=== PATIENT | male | born 1975 | race Caucasian/White ===

== ENCOUNTER 2016-08-10 08:28 | Inpatient (IN) | payer OTHER ==
[~2016-08-10] VITALS: Ht 170.2 cm; Wt 99.3 kg
--- NOTE | 2016-08-10 09:06 | PHYS DOC ---
Adult General Chief Complaint Chief Complaint: ABDOMINAL PAIN HPI HPI Patient is a 40 year old male who presents with normal pain. He states all the symptoms started last night when he started feeling abdominal cramps exhibited feels better when he lays down but the cramps last for several minutes and coming ago. He states he's been having urinary frequency with mild pain on urination. He denies any blood in his stools are diarrhea or constipation. He has had nausea but no vomiting and feels feverish. He denies any abdominal surgeries. States nothing makes the pain better or worse. He does have a history of hypertension. Review of Systems Review of Systems Constitutional: Denies fever or chills [] Eyes: Denies change in visual acuity, redness, or eye pain [] HENT: Denies nasal congestion or sore throat [] Respiratory: Denies cough or shortness of breath [] Cardiovascular: No additional information not addressed in HPI [] GI: Positive for abdominal pain, nausea, Denies vomiting, bloody stools or diarrhea [] : Denies dysuria or hematuria [] Musculoskeletal: Denies back pain or joint pain [] Integument: Denies rash or skin lesions [] Neurologic: Denies headache, focal weakness or sensory changes [] Endocrine: Denies polyuria or polydipsia [] Current Medications Current Medications Current Medications Medications (Trade) Dose Ordered Sig/Aruna Start Time Stop Time Status Last Admin Dose Admin Info (Do NOT chart on this entry -- for MONITORING) 1 each PRN DAILY PRN 08/10/16 09:30 08/12/16 09:29 Iohexol (Omnipaque 300 Mg/ml) 75 ml 1X ONCE 08/10/16 09:30 08/10/16 09:31 DC 08/10/16 09:30 75 ML Morphine Sulfate 4 mg PRN Q15MIN PRN 08/10/16 09:15 08/11/16 09:14 08/10/16 09:14 4 MG Ondansetron HCl (Zofran) 4 mg 1X ONCE 08/10/16 09:15 08/10/16 09:16 DC 08/10/16 09:14 4 MG Sodium Chloride 1,000 ml @ 1,000 mls/hr Q1H 08/10/16 09:15 08/10/16 10:14 DC 08/10/16 09:13 1,000 MLS/HR Allergies Allergies Allergies Coded Allergies Type Severity Reaction Last Updated Verified bee venom protein (honey bee) Allergy Severe Anaphylaxis 08/10/16 Yes Physical Exam Physical Exam Constitutional: Well developed, well nourished, no acute distress, non-toxic appearance. [] HENT: Normocephalic, atraumatic, bilateral external ears normal, oropharynx moist, no oral exudates, nose normal. [] Eyes: PERRLA, EOMI, conjunctiva normal, no discharge. [] Neck: Normal range of motion, no tenderness, supple, no stridor. [] Cardiovascular:Heart rate regular rhythm, no murmur [] Lungs & Thorax: Bilateral breath sounds clear to auscultation [] Abdomen: Bowel sounds hypoactive, distended, tender to palpation with voluntary guarding of the bilateral lower quadrants, no rebound, no masses, no pulsatile masses. [] Skin: Warm, dry, no erythema, no rash. [] Back: No tenderness, no CVA tenderness. [] Extremities: No tenderness, no cyanosis, no clubbing, ROM intact, no edema. [] Neurologic: Alert and oriented X 3, normal motor function, normal sensory function, no focal deficits noted. [] Psychologic: Affect normal, judgement normal, mood normal. [] Current Patient Data Vital Signs Vital Signs Date Time Temp Pulse Resp B/P (MAP) Pulse Ox O2 Delivery O2 Flow Rate FiO2 08/10/16 09:14 17 97 Room Air 08/10/16 08:53 98.7 89 117/67 (84) 98.7 Lab Values Laboratory Tests Test 08/10/16 09:05 White Blood Count 18.2 x10^3/uL (4.0-11.0) H Red Blood Count 4.92 x10^6/uL (4.30-5.70) Hemoglobin 14.1 g/dL (13.0-17.5) Hematocrit 42.7 % (39.0-53.0) Mean Corpuscular Volume 87 fL (79-100) Mean Corpuscular Hemoglobin 29 pg (25-35) Mean Corpuscular Hemoglobin Concent 33 g/dL (31-37) Red Cell Distribution Width 14.9 % (11.5-14.5) H Platelet Count 211 x10^3/uL (140-400) Neutrophils (%) (Auto) 81 % (31-73) H Lymphocytes (%) (Auto) 14 % (24-48) L Monocytes (%) (Auto) 5 % (0-9) Eosinophils (%) (Auto) 0 % (0-3) Basophils (%) (Auto) 0 % (0-3) Neutrophils # (Auto) 14.8 x10^3uL (1.8-7.7) H Lymphocytes # (Auto) 2.5 x10^3/uL (1.0-4.8) Monocytes # (Auto) 0.9 x10^3/uL (0.0-1.1) Eosinophils # (Auto) 0.0 x10^3/uL (0.0-0.7) Basophils # (Auto) 0.0 x10^3/uL (0.0-0.2) Platelet Estimate Pending Prothrombin Time 14.1 SEC (11.7-14.0) H Prothrombin Time INR 1.2 (0.8-1.1) H PTT 26 SEC (24-38) Sodium Level 137 mmol/L (136-145) Potassium Level 4.2 mmol/L (3.5-5.1) Chloride Level 101 mmol/L (98-107) Carbon Dioxide Level 27 mmol/L (21-32) Anion Gap 9 (6-14) Blood Urea Nitrogen 14 mg/dL (8-26) Creatinine 1.3 mg/dL (0.7-1.3) Estimated GFR (Cockcroft-Gault) 60.5 Glucose Level 208 mg/dL (70-99) H Calcium Level 9.6 mg/dL (8.5-10.1) Total Bilirubin 1.6 mg/dL (0.2-1.0) H Direct Bilirubin 0.4 mg/dL (0.0-0.2) H Aspartate Amino Transferase (AST) 18 U/L (15-37) Alanine Aminotransferase (ALT) 33 U/L (16-63) Alkaline Phosphatase 79 U/L (46-116) Creatine Kinase 105 U/L (39-308) Creatine Kinase MB (Mass) 0.8 ng/mL (0.0-3.6) Creatine Kinase MB Relative Index 0.8 % (0-4) Troponin I Quantitative < 0.017 ng/mL (0.000-0.055) Total Protein 8.0 g/dL (6.4-8.2) Albumin 4.0 g/dL (3.4-5.0) Lipase 104 U/L (73-393) Laboratory Tests 08/10/16 09:05 Laboratory Tests 08/10/16 09:05 EKG EKG EKG shows sinus tachycardia [address] elevations, T-wave inversions noted in leads 1, 2, aVL, V5 V6, normal axis, QTC 4 and 39 ms, as interpreted by me. Radiology/Procedures Radiology/Procedures [facility] [address] [place] [address] IMAGING REPORT Signed PATIENT: ROMERO MEZA ACCOUNT: [id number] : 1975 LOCATION: ER AGE: 40 SEX: M EXAM STATUS: REG ER ORD. PHYSICIAN: WARNER BACA MD REASON: abd pain PROCEDURE: CT ABD PELV W/ IV CONTRST ONLY CT study of the abdomen and pelvis with contrast History: Abdominal pain. Technique: After IV infusion of 75 cc of 300, helical CT scanning of the abdomen and pelvis was performed. No GI contrast was administered. This may decrease the sensitivity to detect GI tract pathology. PQRS Compliance Statement: One or more of the following individualized dose reduction techniques were utilized for this examination: 1. Automated exposure control 2. Adjustment of the mA and/or kV according to patient size 3. Use of iterative reconstruction technique Comparison study: None available. Findings: The liver and spleen and pancreas and gallbladder are unremarkable. No extrahepatic biliary ductal dilatation is seen. No adrenal mass is evident. 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 No hydronephrosis or renal mass is seen on either side. Urinary bladder wall is smooth. No focal aneurysmal dilatation of the abdominal aorta is seen. No enlarged abdominal or pelvic lymphadenopathy is seen. Sigmoid diverticulosis is seen. There is segmental wall thickening with moderate pericolonic inflammatory change involving the proximal sigmoid colon consistent with diverticulitis. No free fluid or abscess or free intraperitoneal air is seen. The appendix is normal. The terminal ileum is unremarkable. No obstructive bowel pattern is seen. Dependent atelectasis of both lung bases is seen. No osteolytic process is seen. IMPRESSION: Proximal sigmoid diverticulitis. No abscess or free air or bowel obstruction or free fluid is seen. Note-colonic malignancy could have the same appearance. Therefore, recommend colonoscopy after completion of antibiotic therapy if this has not been performed recently. DICTATED and SIGNED BY: BROOKE TARIQ MD DATE: 08/10/16 1055 CC: WARNER BACA MD; NO PCP ~ Impressions: Diverticulitis Course & Med Decision Making Course & Med Decision Making Pertinent Labs and Imaging studies reviewed. (See chart for details) CT abdomen pelvis shows diverticulitis. Also elevated white blood cell count. He 's been started on Cipro and Flagyl IV. He is being admitted to Dr. mclaughlin in stable condition this time. Dr. mclaughlin has been updated on his physical exam. Dragon Disclaimer Dragon Disclaimer This electronic medical record was generated, in whole or in part, using a voice recognition dictation system. Departure Departure Impression: Primary Impression: Diverticulitis Disposition: ADMITTED INPATIENT Admitting Physician: Annamarie Mclaughlin Condition: STABLE Problem Qualifiers Primary Impression: Diverticulitis Diverticulitis site: unspecified part of intestinal tract Diverticulitis complication: unspecified complication status WARNER BACA MD Aug 10, 2016 09:06
[2016-08-10] MEDS: MORPHINE SULFATE 4 MG/ML DISP.SYRIN. IV/SQ PRN ×2 (09:14→11:57)
[2016-08-10] MEDS ORDERED: IV NORMAL SALINE 1000ML BAG 1,000 ML IV SCH (09:15)
[2016-08-10] MEDS ORDERED: ONDANSETRON PF 4 MG/2 ML VIAL. IV ONE (09:15)
[2016-08-10 09:21] LABS: BASO % 0 % (0-3); EOS % 0 % (0-3); HEMATOCRIT 42.7 % (39.0-53.0); HEMOGLOBIN 14.1 g/dL (13.0-17.5); LYMPH # 2.5 x10^3/uL (1.0-4.8); LYMPH % 14 % (24-48); MEAN CORPUSCULAR HEMOGLOBIN 29 pg (25-35); MEAN CORPUSCULAR HGB CONC 33 g/dL (31-37); MEAN CORPUSCULAR VOLUME 87 fL (79-100); MONO % 5 % (0-9); NEUT % 81 % (31-73); PLATELET COUNT 211 x10^3/uL (140-400); RED BLOOD COUNT 4.92 x10^6/uL (4.30-5.70); RED CELL DISTRIBUTION WIDTH 14.9 % (11.5-14.5); WHITE BLOOD COUNT 18.2 x10^3/uL (4.0-11.0)
[2016-08-10] MEDS ORDERED: IOHEXOL 300 MG/ML 75 ML VIAL IV ONE (09:30)
[2016-08-10] MEDS ORDERED: CONTRAST GIVEN MC PRN (09:30)
[2016-08-10 09:31] LABS: INR 1.2 (0.8-1.1); PROTHROMBIN TIME PATIENT 14.1 SEC (11.7-14.0)
[2016-08-10 09:41] LABS: CALCIUM 9.6 mg/dL (8.5-10.1); CREATININE 1.3 mg/dL (0.7-1.3); DIRECT BILIRUBIN 0.4 mg/dL (0.0-0.2); GFR 60.5; POTASSIUM 4.2 mmol/L (3.5-5.1); TOTAL BILIRUBIN 1.6 mg/dL (0.2-1.0)
[2016-08-10 09:46] LABS: CKMB MASS 0.8 ng/mL (0.0-3.6)
--- NOTE | 2016-08-10 10:46 | EKG ---
[facility] [address] [place] [address] Test Date: 2016-08-10 Test Time: 09:50:02 Pat Name: ROMERO MEZA Department: Room: Gender: M [employer]: : 1975 Requested By: WARNER BACA Order Number: [id number] Reading MD: Jessica Torres Measurements Intervals [place] Rate: 103 P: 47 WI: 122 QRS: 24 QRSD: 82 T: 178 QT: 334 QTc: 439 Interpretive Statements SINUS TACHYCARDIA COMPLEX(ES) WITH ABERRANT INTRAVENTRICULAR CONDUCTION LEFT ATRIAL ABNORMALITY T ABNORMALITY IN ANTERIOR LEADS LATERAL LEADS INFERIOR LEADS Electronically Signed On 08-13-2016 13:41:05 CDT by Jessica Torres
--- NOTE | 2016-08-10 11:04 | RAD ---
CT study of the abdomen and pelvis with contrast History: Abdominal pain. Technique: After IV infusion of 75 cc of 300, helical CT scanning of the abdomen and pelvis was performed. No GI contrast was administered. This may decrease the sensitivity to detect GI tract pathology. PQRS Compliance Statement: One or more of the following individualized dose reduction techniques were utilized for this examination: 1. Automated exposure control 2. Adjustment of the mA and/or kV according to patient size 3. Use of iterative reconstruction technique Comparison study: None available. Findings: The liver and spleen and pancreas and gallbladder are unremarkable. No extrahepatic biliary ductal dilatation is seen. No adrenal mass is evident. 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 No hydronephrosis or renal mass is seen on either side. Urinary bladder wall is smooth. No focal aneurysmal dilatation of the abdominal aorta is seen. No enlarged abdominal or pelvic lymphadenopathy is seen. Sigmoid diverticulosis is seen. There is segmental wall thickening with moderate pericolonic inflammatory change involving the proximal sigmoid colon consistent with diverticulitis. No free fluid or abscess or free intraperitoneal air is seen. The appendix is normal. The terminal ileum is unremarkable. No obstructive bowel pattern is seen. Dependent atelectasis of both lung bases is seen. No osteolytic process is seen. IMPRESSION: Proximal sigmoid diverticulitis. No abscess or free air or bowel obstruction or free fluid is seen. Note-colonic malignancy could have the same appearance. Therefore, recommend colonoscopy after completion of antibiotic therapy if this has not been performed recently.
[2016-08-10 11:40] LABS: BILIRUBIN,URINE NEGATIVE (NEG); GLUCOSE,URINE NEGATIVE (NEG); NITRITE,URINE NEGATIVE (NEG); PH,URINE 5.5; PROTEIN,URINE 30 mg/dL (NEG-TRACE); UROBILINOGEN,URINE 0.2 mg/dL (0.2 mg/dL)
[2016-08-10 11:44] LABS: BARBITURATES NEG (NEG); BENZODIAZEPINES NEG (NEG); CANNABINOIDS NEG (NEG); COCAINE NEG (NEG); METHADONE NEG (NEG); OPIATES POS (NEG); PHENCYCLIDINE NEG (NEG)
[2016-08-10] MEDS ORDERED: IV NORMAL SALINE 1000ML BAG 1,000 ML IV ONE ×2 (11:45→12:45)
[2016-08-10] MEDS ORDERED: ONDANSETRON PF 4 MG/2 ML VIAL. IV PRN (11:45)
[2016-08-10] MEDS ORDERED: IV DEXTROSE 5 %-0.45 % NACL 1,000 ML IV ONE (11:45)
[2016-08-10 11:58] LABS: BACTERIA,URINE 0 /HPF (0-FEW); RBC,URINE 0 /HPF (0-2); SQUAMOUS EPITHELIAL CELL,UR OCC /LPF; WBC,URINE 0 /HPF (0-4)
[2016-08-10] MEDS ORDERED: CIPROFLOXACIN 400MG PREMIX 200 ML IV ONE (12:00)
--- NOTE | 2016-08-10 12:01 | ACF ---
Admit Criteria Forms Admit Criteria Forms Admit Criteria Forms ABDOMINAL PAIN Clinical Indications for Admission to Inpatient Care (Place 'X' for any and all applicable criteria): Admission is indicated for ANY ONE of the following(1)(2)(3)(4)(5): [X]I. Inpatient admission required rather than observation care (Also use Abdominal Pain: Observation Care, as appropriate) because of ANY ONE of the following: [ ]a) Severe pain requiring acute inpatient management [X]b) Identification of etiology/finding that requires inpatient care (eg, aortic dissection, free air) [ ]c) Absent bowel sounds with complete ileus(6) [ ]d) Suspected toxic megacolon [ ]e) Severe electrolyte abnormalities requiring inpatient care [ ]f) High fever or infection requiring inpatient admission as indicated by ANY ONE of following(7)(8): [ ] i) Appropriate outpatient or observational care antimicrobial treatment unavailable, not effective, or not feasible [ ] ii) Documented bacteremia [ ] iii) Temperature > 104.9 degrees F (oral) [ ] iv) T >103.1 F (oral) or < 96.8 F(rectal) that does not respond to all emergency treatment measures [ ]g) Signs of intestinal obstruction [B] [ ]h) Hemodynamic instability [ ]i) IV fluid to replace significant ongoing losses (greater than 3 L/m2 per day) (12)(13) [ ]j) Percutaneous or open drainage (eg, abscess, biliary tract ) procedures [ ]k) Parenteral nutrition regimen that must be implemented on inpatient basis [ ]l) Other condition,treatment or monitoring requiring inpatient admission. [ ]II. Peritoneal signs present [ ]III. Surgery needed that cannot be performed on an ambulatory basis. [ ]IV. Evaluation requires patient to not eat or drink for extended period ( eg, more than 24 hours). [ ]V. Contraindications and/or Inappropriate clinical situations for Observational Care in patients with abdominal pain, when ANY ONE of the following is required: [ ]a) Thorough evaluation is required to prevent catastrophic events due to delays in diagnosing (e.g.Mesenteric ischemia) 1,3 [ ]b) Patient with severe pathology or with chronic symptoms unlikely to improve in the ED stay (3) [ ]. General contraindications and/or Inappropriate clinical situations for Observational Care in patients with abdominal pain, when ANY ONE of the following is required: [ ]a) Prediction of prolongation of LOS based on ANY ONE of the following may be considered as a contraindication for observational care 2, 3, 4, 5, 6, 7, 8, 9, 10, 11 [ ]i) Age > 65 yrs. [ ]ii) Patient arriving by ambulance [ ]iii) Patient with high acuity [ ]iv) Patient requiring vital sign monitoring [ ]v) Patient on IV medication [ ]b) Systolic blood pressures 180mmHg 3,12 [ ]c) Patient with altered mental status including delirium and other alteration of consciousness, (3) [ ]d) Patient whose discharge disposition will be to a usp home or rehabilitation home should not be managed in Emergency Department Observation Unit. CMS rule requires 3 days hospital stay before such placement.3,13 [ ]e) Patient with failure to thrive due to broad array of etiologies 3,16,17 [ ]f) Inability to ambulate 3,14 Extended stay beyond goal length of stay may be needed for(2)(3): [ ]a) Persistent abdominal pain with suspected intra-abdominal process [ ]b) Diagnosed condition requiring continued stay (e.g., pancreatitis, complicated diverticulitis) [ ]c) Surgery (e.g., colectomy) The original [employer] content created by [employer] has been revised. The portions of the content which have been revised are identified through the use of italic text or in bold, and [facility] has neither reviewed nor approved the modified material.All other unmodified content is copyright [employer]. Please see references footnoted in the original [employer] edition 2016 HERLINDA TORRE Aug 10, 2016 12:01
[2016-08-10] MEDS ORDERED: DEXTROSE 50% 25 GM / 50ML DISP.SYRIN. IV PRN (12:45)
[2016-08-10 12:50] VITALS: BP 132/80
[2016-08-10 13:00] VITALS: BP 143/68
[2016-08-10] MEDS ORDERED: NICOTINE POLACRILEX 2MG GUM PACKAGE of 12. BC PRN (13:00)
[2016-08-10] MEDS ORDERED: NICOTINE 14MG PATCH. TD PRN (13:00)
[2016-08-10 13:02] LABS: PLT ESTIMATE ADEQUATE (ADEQUATE)
--- NOTE | 2016-08-10 13:03 | PDOC1 ---
History and Physical Date of Admission Date of Admission DATE: 08/10/16 TIME: 12:57 Identification/Chief Complaint Chief Complaint abdominal pain Problems: Source Source: Chart review, Patient History of Present Illness History of Present Illness Mr. Hua, is a 40 year old male admit with sudden onset of severe abd pain. Pain 0300 last night, acute pain, but tried to keep working, brought to ER by a coworker. Crampy pain, 7/10, worse with standing or walking, min. improvement with IV morphine. no fever or chills, urine has been darker, and some pain when urinting, but may be abdominal pain. 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 Family History: Hypertension Social History Smoke: 1 pack per day ALCOHOL: none Drugs: None Current Problem List Problem List Problems Medical Problems: (1) Diverticulitis Status: Acute Problems: Current Medications Current Medications Current Medications Morphine Sulfate 4 mg PRN Q15MIN PRN IV/SQ PAIN GREATER THAN 3/10 Last administered on 08/10/16 11:57; Start 08/10/16 at 09:15; Stop 08/11/16 at 09:14 Sodium Chloride 1,000 ml @ 1,000 mls/hr Q1H IV Last administered on 08/10/16 09:13; Start 08/10/16 at 09:15; Stop 08/10/16 at 10:14; Status DC Ondansetron HCl (Zofran) 4 mg 1X ONCE IV Last administered on 08/10/16 09:14 ; Start 08/10/16 at 09:15; Stop 08/10/16 at 09:16; Status DC Iohexol (Omnipaque 300 Mg/ml) 75 ml 1X ONCE IV Last administered on 08/10/16 09:30; Start 08/10/16 at 09:30; Stop 08/10/16 at 09:31; Status DC Info (Do NOT chart on this entry -- for MONITORING) 1 each PRN DAILY PRN MC SEE COMMENTS; Start 08/10/16 at 09:30; Stop 08/12/16 at 09:29 Ciprofloxacin Lactate 200 ml @ 200 mls/hr Q12HR IV ; Start 08/10/16 at 21:00 Metronidazole 100 ml @ 100 mls/hr Q8HRS IV ; Start 08/10/16 at 22:00 Ciprofloxacin Lactate 200 ml @ 200 mls/hr 1X ONCE IV Last administered on t 12:00; Start 08/10/16 at 12:00; Stop 08/10/16 at 12:59 Metronidazole 100 ml @ 100 mls/hr 1X ONCE IV ; Start 08/10/16 at 12:00; Stop 08/10/16 at 12:59 Ondansetron HCl (Zofran) 4 mg PRN Q8HRS PRN IV NAUSEA/VOMITING; Start 08/10/16 at 11:45; Stop 08/11/16 at 11:44 Morphine Sulfate 4 mg PRN Q2HR PRN IV PAIN; Start 08/10/16 at 11:45; Stop 08/12 at 23:59 Dextrose/Sodium Chloride 1,000 ml @ 125 mls/hr 1X ONCE IV ; Start 08/10/16 at 11:45; Stop 08/10/16 at 19:44 Sodium Chloride 1,000 ml @ 1,000 mls/hr 1X ONCE IV ; Start 08/10/16 at 11:45; Stop 08/10/16 at 12:44; Status DC Potassium Chloride/Dextrose/ Sod Cl 1,000 ml @ 125 mls/hr Q8H IV ; Start at 12:45 Insulin Aspart (NovoLOG) 0-7 UNITS TIDWMEALS SQ ; Start 08/10/16 at 17:00 Dextrose (Dextrose 50%-Water Syringe) 12.5 gm PRN Q15MIN PRN IV SEE COMMENTS; Start 08/10/16 at 12:45 Sodium Chloride 1,000 ml @ 1,000 mls/hr 1X ONCE IV ; Start 08/10/16 at 12:45; Stop 08/10/16 at 13:44 Allergies Allergies: Coded Allergies: bee venom protein (honey bee) (Verified Allergy, Severe, Anaphylaxis, 08/10) ROS General: YES: Appetite, No: Chills, Night Sweats, Fatigue, Malaise, Other PSYCHOLOGICAL ROS: No: Anxiety, Behavioral Disorder, Concentration difficultie , Decreased libido, Depression, Disorientation, Hallucinations, Hostility, Irritablity, Memory difficulties, Mood Swings, Obsessive thoughts, Physical abuse, Sexual abuse, Sleep disturbances, Suicidal ideation, Other Eyes: No Blurry vision, No Decreased vision, No Double vision, No Dry eyes, No Excessive tearing, No Eye Pain, No Itchy Eyes, No Loss of vision, No Photophobia , No Scotomata, No Uses contacts, No Uses glasses, No Other HEENT: No: Heacaches, Visual Changes, Hearing change, Nasal congestion, Nasal discharge, Oral lesions, Sinus pain, Sore Throat, Epistaxis, Sneezing, Snoring, Tinnitus, Vertigo, Vocal changes, Other Respiratory: No: Cough, Hemoptysis, Orthopnea, Pleuritic Pain, Shortness of breath, SOB with excertion, Sputum Changes, Stridor, Tachypnea, Wheezing, Other Cardiovascular: No Chest Pain, No Palpitations, No Orthopnea, No Paroxysmal Noc. Dyspnea, No Edema, No Lt Headedness, No Other Gastrointestinal: Yes Abdominal Pain, No Nausea, No Vomiting, No Diarrhea, No Constipation, No Melena, No Hematochezia, No Other Genitourinary: No Dysuria, No Frequency, No Incontinence, No Hematuria, No Retention, No Discharge, No Urgency, No Pain, No Flank Pain, No Other, No , No , No , No , No , No , No Musculoskeletal: Yes Joint Stiffness, No Gait Disturbance, No Joint Pain, No Joint Swelling, No Muscle Pain, No Muscular Weakness, No Pain In:, No Swelling In:, No Other Neurological: No Behavorial Changes, No Bowel/Bladder ControlChng, No Confusion , No Dizziness, No Gait Disturbance, No Headaches, No Impaired Coord/balance, No Memory Loss, No Numbness/Tingling, No Seizures, No Speech Problems, No Tremors, No Visual Changes, No Weakness, No Other Skin: No Dry Skin, No Eczema, No Hair Changes, No Lumps, No Mole Changes, No Mottling, No Nail Changes, No Pruritus, No Rash, No Skin Lesion Changes, No Other, No Acne Physical Exam General: Alert, mild distress HEENT: Atraumatic, PERRLA, EOMI, Mucous membr. moist/pink Lungs: Clear to auscultation, Normal air movement Heart: RRR, no gallops, no murmurs Abdomen: Soft (tender), Other (guarding, sounds hypoactive, no rebound or peritoneal sign) Extremities: No clubbing, No edema, Normal pulses Skin: No rashes, No significant lesion Neuro: Normal speech, Normal tone, Sensation intact, Cranial nerves 3-12 NL Psych/Mental Status: Mental status NL, Mood NL Vitals Vitals Vital Signs Date Time Temp Pulse Resp B/P (MAP) Pulse Ox O2 Delivery O2 Flow Rate FiO2 08/10/16 12:20 101 21 132/80 (97) 92 Room Air 08/10/16 08:53 98.7 98.7 Labs Labs Laboratory Tests Test 08/10/16 09:05 08/10/16 11:20 White Blood Count 18.2 x10^3/uL (4.0-11.0) Red Blood Count 4.92 x10^6/uL (4.30-5.70) Hemoglobin 14.1 g/dL (13.0-17.5) Hematocrit 42.7 % (39.0-53.0) Mean Corpuscular Volume 87 fL (79-100) Mean Corpuscular Hemoglobin 29 pg (25-35) Mean Corpuscular Hemoglobin Concent 33 g/dL (31-37) Red Cell Distribution Width 14.9 % (11.5-14.5) Platelet Count 211 x10^3/uL (140-400) Neutrophils (%) (Auto) 81 % (31-73) Lymphocytes (%) (Auto) 14 % (24-48) Monocytes (%) (Auto) 5 % (0-9) Eosinophils (%) (Auto) 0 % (0-3) Basophils (%) (Auto) 0 % (0-3) Neutrophils # (Auto) 14.8 x10^3uL (1.8-7.7) Lymphocytes # (Auto) 2.5 x10^3/uL (1.0-4.8) Monocytes # (Auto) 0.9 x10^3/uL (0.0-1.1) Eosinophils # (Auto) 0.0 x10^3/uL (0.0-0.7) Basophils # (Auto) 0.0 x10^3/uL (0.0-0.2) Prothrombin Time 14.1 SEC (11.7-14.0) Prothromb Time International Ratio 1.2 (0.8-1.1) Activated Partial Thromboplast Time 26 SEC (24-38) Sodium Level 137 mmol/L (136-145) Potassium Level 4.2 mmol/L (3.5-5.1) Chloride Level 101 mmol/L (98-107) Carbon Dioxide Level 27 mmol/L (21-32) Anion Gap 9 (6-14) Blood Urea Nitrogen 14 mg/dL (8-26) Creatinine 1.3 mg/dL (0.7-1.3) Estimated GFR (Cockcroft-Gault) 60.5 Glucose Level 208 mg/dL (70-99) Calcium Level 9.6 mg/dL (8.5-10.1) Total Bilirubin 1.6 mg/dL (0.2-1.0) Direct Bilirubin 0.4 mg/dL (0.0-0.2) Aspartate Amino Transf (AST/SGOT) 18 U/L (15-37) Alanine Aminotransferase (ALT/SGPT) 33 U/L (16-63) Alkaline Phosphatase 79 U/L (46-116) Creatine Kinase 105 U/L (39-308) Creatine Kinase MB (Mass) 0.8 ng/mL (0.0-3.6) Creatine Kinase MB Relative Index 0.8 % (0-4) Troponin I Quantitative < 0.017 ng/mL (0.000-0.055) Total Protein 8.0 g/dL (6.4-8.2) Albumin 4.0 g/dL (3.4-5.0) Lipase 104 U/L (73-393) Urine Collection Type Unknown Urine Color Yellow Urine Clarity Clear Urine pH 5.5 Urine Specific [place] 1.020 Urine Protein 30 mg/dL (NEG-TRACE) Urine Glucose (UA) Negative mg/dL (NEG) Urine Ketones (Stick) Negative mg/dL (NEG) Urine Blood Negative (NEG) Urine Nitrite Negative (NEG) Urine Bilirubin Negative (NEG) Urine Urobilinogen Dipstick 0.2 mg/dL (0.2 mg/dL) Urine Leukocyte Esterase Negative (NEG) Urine RBC 0 /HPF (0-2) Urine WBC 0 /HPF (0-4) Urine Squamous Epithelial Cells Occ /LPF Urine Bacteria 0 /HPF (0-FEW) Urine Hyaline Casts Many /HPF Urine Mucus Marked /LPF Urine Opiates Screen Pos (NEG) Urine Methadone Screen Neg (NEG) Urine Barbiturates Neg (NEG) Urine Phencyclidine Screen Neg (NEG) Urine Amphetamine/Methamphetamine Neg (NEG) Urine Benzodiazepines Screen Neg (NEG) Urine Cocaine Screen Neg (NEG) Urine Cannabinoids Screen Neg (NEG) Urine Ethyl Alcohol Neg (NEG) Laboratory Tests Test 08/10/16 09:05 08/10/16 11:20 White Blood Count 18.2 x10^3/uL (4.0-11.0) Red Blood Count 4.92 x10^6/uL (4.30-5.70) Hemoglobin 14.1 g/dL (13.0-17.5) Hematocrit 42.7 % (39.0-53.0) Mean Corpuscular Volume 87 fL (79-100) Mean Corpuscular Hemoglobin 29 pg (25-35) Mean Corpuscular Hemoglobin Concent 33 g/dL (31-37) Red Cell Distribution Width 14.9 % (11.5-14.5) Platelet Count 211 x10^3/uL (140-400) Neutrophils (%) (Auto) 81 % (31-73) Lymphocytes (%) (Auto) 14 % (24-48) Monocytes (%) (Auto) 5 % (0-9) Eosinophils (%) (Auto) 0 % (0-3) Basophils (%) (Auto) 0 % (0-3) Neutrophils # (Auto) 14.8 x10^3uL (1.8-7.7) Lymphocytes # (Auto) 2.5 x10^3/uL (1.0-4.8) Monocytes # (Auto) 0.9 x10^3/uL (0.0-1.1) Eosinophils # (Auto) 0.0 x10^3/uL (0.0-0.7) Basophils # (Auto) 0.0 x10^3/uL (0.0-0.2) Prothrombin Time 14.1 SEC (11.7-14.0) Prothromb Time International Ratio 1.2 (0.8-1.1) Activated Partial Thromboplast Time 26 SEC (24-38) Sodium Level 137 mmol/L (136-145) Potassium Level 4.2 mmol/L (3.5-5.1) Chloride Level 101 mmol/L (98-107) Carbon Dioxide Level 27 mmol/L (21-32) Anion Gap 9 (6-14) Blood Urea Nitrogen 14 mg/dL (8-26) Creatinine 1.3 mg/dL (0.7-1.3) Estimated GFR (Cockcroft-Gault) 60.5 Glucose Level 208 mg/dL (70-99) Calcium Level 9.6 mg/dL (8.5-10.1) Total Bilirubin 1.6 mg/dL (0.2-1.0) Direct Bilirubin 0.4 mg/dL (0.0-0.2) Aspartate Amino Transf (AST/SGOT) 18 U/L (15-37) Alanine Aminotransferase (ALT/SGPT) 33 U/L (16-63) Alkaline Phosphatase 79 U/L (46-116) Creatine Kinase 105 U/L (39-308) Creatine Kinase MB (Mass) 0.8 ng/mL (0.0-3.6) Creatine Kinase MB Relative Index 0.8 % (0-4) Troponin I Quantitative < 0.017 ng/mL (0.000-0.055) Total Protein 8.0 g/dL (6.4-8.2) Albumin 4.0 g/dL (3.4-5.0) Lipase 104 U/L (73-393) Urine Collection Type Unknown Urine Color Yellow Urine Clarity Clear Urine pH 5.5 Urine Specific [place] 1.020 Urine Protein 30 mg/dL (NEG-TRACE) Urine Glucose (UA) Negative mg/dL (NEG) Urine Ketones (Stick) Negative mg/dL (NEG) Urine Blood Negative (NEG) Urine Nitrite Negative (NEG) Urine Bilirubin Negative (NEG) Urine Urobilinogen Dipstick 0.2 mg/dL (0.2 mg/dL) Urine Leukocyte Esterase Negative (NEG) Urine RBC 0 /HPF (0-2) Urine WBC 0 /HPF (0-4) Urine Squamous Epithelial Cells Occ /LPF Urine Bacteria 0 /HPF (0-FEW) Urine Hyaline Casts Many /HPF Urine Mucus Marked /LPF Urine Opiates Screen Pos (NEG) Urine Methadone Screen Neg (NEG) Urine Barbiturates Neg (NEG) Urine Phencyclidine Screen Neg (NEG) Urine Amphetamine/Methamphetamine Neg (NEG) Urine Benzodiazepines Screen Neg (NEG) Urine Cocaine Screen Neg (NEG) Urine Cannabinoids Screen Neg (NEG) Urine Ethyl Alcohol Neg (NEG) VTE Prophylaxis Ordered VTE Prophylaxis Devices: No VTE Pharmacological Prophylaxi: Yes Assessment/Plan Assessment/Plan Acute abd pain Diverticulitis Sepsis, 2 liter NS IV fluid, then 125m/hr hyperglycemia, reactive, have SSI obesity, BMI 34 htn, he cannot remember home meds, BP normal now No PCP tobaccoism, replacement PRN, he is pre-contemplation of cessation ASUNCION GILLETTE MD Aug 10, 2016 13:02
[2016-08-10] MEDS ORDERED: fentaNYL PF VIAL 100 MCG/2 ML VIAL IV ONE (13:15)
[2016-08-10] MEDS ORDERED: ACETAMINOPHEN 500 MG TABLET PO ONE (13:30)
[2016-08-10] MEDS ORDERED: KETOROLAC 15 MG/ML VIAL. IV ONE (13:30)
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
[2016-08-10 15:00] VITALS: BP 128/86
[2016-08-10] MEDS: POTASSIUM CL 20MEQ D5-0.45NACL 1,000 ML IV SCH ×2 (15:52→22:00)
[2016-08-10] MEDS: INSULIN ASPART 300 UNITS/3 ML INSULN.PEN SQ SCH (17:00)
[2016-08-10 19:00] VITALS: BP 155/93
[2016-08-10] MEDS ORDERED: METO50TA2 PO (19:42)
[2016-08-10] MEDS: MORPHINE SULFATE 4 MG/ML DISP.SYRIN. IV PRN ×2 (19:52→21:57)
[2016-08-10] MEDS: CIPROFLOXACIN 400MG PREMIX 200 ML IV SCH (19:55)
[2016-08-10 23:39] VITALS: BP 175/110
[2016-08-11] VITALS (8 sets, daily range): BP systolic 129–179; BP diastolic 81–109
[2016-08-11] MEDS ORDERED: LABETALOL 20 MG/4 ML DISP.SYRIN. IVP ONE
[2016-08-11] MEDS: MORPHINE SULFATE 4 MG/ML DISP.SYRIN. IV PRN ×7 (00:29→22:22)
[2016-08-11] MEDS: ACETAMINOPHEN 325 MG TABLET. PO PRN ×3 (00:32→20:28)
[2016-08-11 01:23] LABS: CREATININE 0.9 mg/dL (0.7-1.3); GFR 92.5; POTASSIUM 3.5 mmol/L (3.5-5.1)
[2016-08-11 01:26] LABS: BASO % 0 % (0-3); EOS % 0 % (0-3); HEMATOCRIT 35.4 % (39.0-53.0); HEMOGLOBIN 11.9 g/dL (13.0-17.5); LYMPH # 2.5 x10^3/uL (1.0-4.8); LYMPH % 16 % (24-48); MEAN CORPUSCULAR HEMOGLOBIN 29 pg (25-35); MEAN CORPUSCULAR HGB CONC 34 g/dL (31-37); MEAN CORPUSCULAR VOLUME 86 fL (79-100); MONO % 5 % (0-9); NEUT % 79 % (31-73); PLATELET COUNT 163 x10^3/uL (140-400); RED BLOOD COUNT 4.12 x10^6/uL (4.30-5.70); RED CELL DISTRIBUTION WIDTH 14.5 % (11.5-14.5); WHITE BLOOD COUNT 15.5 x10^3/uL (4.0-11.0)
[2016-08-11] MEDS: POTASSIUM CL 20MEQ D5-0.45NACL 1,000 ML IV SCH ×3 (05:37→22:23)
[2016-08-11] MEDS: INSULIN ASPART 300 UNITS/3 ML INSULN.PEN SQ SCH (08:00)
[2016-08-11] MEDS: CIPROFLOXACIN 400MG PREMIX 200 ML IV SCH (09:01)
[2016-08-11] MEDS: MORPHINE IR 15 MG TABLET PO PRN (09:03)
--- NOTE | 2016-08-11 09:31 | PDOC ---
Subjective: Subjective: Pain unchanged. Thirsty and hungry, really wants broth. Headache. Objective: Vital Signs: Vital Signs Date Time Temp Pulse Resp B/P (MAP) Pulse Ox O2 Delivery O2 Flow Rate FiO2 08/11/16 09:03 20 Room Air 08/11/16 07:00 102.0 109 142/81 (101) 93 102.0 Labs: Laboratory Tests Test 08/10/16 11:20 08/10/16 16:42 08/11/16 00:00 08/11/16 00:59 Urine Collection Type Unknown Urine Color Yellow Urine Clarity Clear Urine pH 5.5 Urine Specific [place] 1.020 Urine Protein 30 mg/dL Urine Glucose (UA) Negative mg/dL Urine Ketones (Stick) Negative mg/dL Urine Blood Negative Urine Nitrite Negative Urine Bilirubin Negative Urine Urobilinogen Dipstick 0.2 mg/dL Urine Leukocyte Esterase Negative Urine RBC 0 /HPF Urine WBC 0 /HPF Urine Squamous Epithelial Cells Occ /LPF Urine Bacteria 0 /HPF Urine Hyaline Casts Many /HPF Urine Mucus Marked /LPF Urine Opiates Screen Pos Urine Methadone Screen Neg Urine Barbiturates Neg Urine Phencyclidine Screen Neg Urine Amphetamine/Methamphetamine Neg Urine Benzodiazepines Screen Neg Urine Cocaine Screen Neg Urine Cannabinoids Screen Neg Urine Ethyl Alcohol Neg Glucose (Fingerstick) 101 mg/dL 134 mg/dL White Blood Count 15.5 x10^3/uL Red Blood Count 4.12 x10^6/uL Hemoglobin 11.9 g/dL Hematocrit 35.4 % Mean Corpuscular Volume 86 fL Mean Corpuscular Hemoglobin 29 pg Mean Corpuscular Hemoglobin Concent 34 g/dL Red Cell Distribution Width 14.5 % Platelet Count 163 x10^3/uL Neutrophils (%) (Auto) 79 % Lymphocytes (%) (Auto) 16 % Monocytes (%) (Auto) 5 % Eosinophils (%) (Auto) 0 % Basophils (%) (Auto) 0 % Neutrophils # (Auto) 12.2 x10^3uL Lymphocytes # (Auto) 2.5 x10^3/uL Monocytes # (Auto) 0.8 x10^3/uL Eosinophils # (Auto) 0.0 x10^3/uL Basophils # (Auto) 0.0 x10^3/uL Sodium Level 137 mmol/L Potassium Level 3.5 mmol/L Chloride Level 103 mmol/L Carbon Dioxide Level 24 mmol/L Anion Gap 10 Blood Urea Nitrogen 11 mg/dL Creatinine 0.9 mg/dL Estimated GFR (Cockcroft-Gault) 92.5 Glucose Level 136 mg/dL Calcium Level 8.0 mg/dL Test 08/11/16 08:03 Glucose (Fingerstick) 164 mg/dL PE: GEN: looks uncomfortable LUNGS: clear anteriorly, nasal cannula HEART: tachycardic ABD: LLQ to suprapubic to RLQ (similar to yesterday), BS+ NEURO/PSYCH: A & O 3 A/P: Sigmoid diverticulitis -first episode, no previous colonoscopy -significant lower abd pain -NPO (except ice chips) on IV Flagyl and Cipro Leukocytosis (better), tachycardia, HTN -- Still significant discomfort. Continue same for now. YOMAIRA THOMPSON Aug 11, 2016 09:31
[2016-08-11] MEDS ORDERED: IV NORMAL SALINE 1000ML BAG 1,000 ML IV ONE (11:00)
[2016-08-11] MEDS ORDERED: MAGNESIUM SULFATE 2GM 50 ML IV ONE (11:00)
[2016-08-11] MEDS ORDERED: BENZOCAINE/MENTHOL LOZENGE. PO PRN (11:00)
[2016-08-11] MEDS ORDERED: SALIVA STIMULANT AGENT 44ML SPRAY BOTTLE. PO PRN (11:00)
--- NOTE | 2016-08-11 11:01 | PDOC ---
PROGRESS NOTES Chief Complaint Chief Complaint Acute abd pain Diverticulitis Sepsis, hyperglycemia, reactive, obesity, BMI 34 htn, tobaccoism, History of Present Illness History of Present Illness pain persists, but hungry, and wants to eat fever again, tachycardia, white count better consult ID, blood cx yesterday has no result yet would cx again if febrile, cont current abx bolus 1 liter NS now, then 125./hr Vitals Vitals Vital Signs Date Time Temp Pulse Resp B/P (MAP) Pulse Ox O2 Delivery O2 Flow Rate FiO2 08/11/16 09:03 20 Room Air 08/11/16 07:00 102.0 109 142/81 (101) 93 102.0 Physical Exam General: Alert, Oriented X3, Cooperative, mild distress Heart: Regular rate Lungs: Clear, Wheezing Abdomen: Soft (tender), Other (guarding, sounds hypoactive, no rebound or peritoneal sign) Extremities: No clubbing, No edema, Normal pulses Skin: No rashes, No significant lesion Labs LABS Laboratory Tests Test 08/10/16 11:20 08/10/16 16:42 08/11/16 00:00 08/11/16 00:59 Urine Collection Type Unknown Urine Color Yellow Urine Clarity Clear Urine pH 5.5 Urine Specific [place] 1.020 Urine Protein 30 mg/dL (NEG-TRACE) Urine Glucose (UA) Negative mg/dL (NEG) Urine Ketones (Stick) Negative mg/dL (NEG) Urine Blood Negative (NEG) Urine Nitrite Negative (NEG) Urine Bilirubin Negative (NEG) Urine Urobilinogen Dipstick 0.2 mg/dL (0.2 mg/dL) Urine Leukocyte Esterase Negative (NEG) Urine RBC 0 /HPF (0-2) Urine WBC 0 /HPF (0-4) Urine Squamous Epithelial Cells Occ /LPF Urine Bacteria 0 /HPF (0-FEW) Urine Hyaline Casts Many /HPF Urine Mucus Marked /LPF Urine Opiates Screen Pos (NEG) Urine Methadone Screen Neg (NEG) Urine Barbiturates Neg (NEG) Urine Phencyclidine Screen Neg (NEG) Urine Amphetamine/Methamphetamine Neg (NEG) Urine Benzodiazepines Screen Neg (NEG) Urine Cocaine Screen Neg (NEG) Urine Cannabinoids Screen Neg (NEG) Urine Ethyl Alcohol Neg (NEG) Glucose (Fingerstick) 101 mg/dL (70-99) 134 mg/dL (70-99) White Blood Count 15.5 x10^3/uL (4.0-11.0) Red Blood Count 4.12 x10^6/uL (4.30-5.70) Hemoglobin 11.9 g/dL (13.0-17.5) Hematocrit 35.4 % (39.0-53.0) Mean Corpuscular Volume 86 fL (79-100) Mean Corpuscular Hemoglobin 29 pg (25-35) Mean Corpuscular Hemoglobin Concent 34 g/dL (31-37) Red Cell Distribution Width 14.5 % (11.5-14.5) Platelet Count 163 x10^3/uL (140-400) Neutrophils (%) (Auto) 79 % (31-73) Lymphocytes (%) (Auto) 16 % (24-48) Monocytes (%) (Auto) 5 % (0-9) Eosinophils (%) (Auto) 0 % (0-3) Basophils (%) (Auto) 0 % (0-3) Neutrophils # (Auto) 12.2 x10^3uL (1.8-7.7) Lymphocytes # (Auto) 2.5 x10^3/uL (1.0-4.8) Monocytes # (Auto) 0.8 x10^3/uL (0.0-1.1) Eosinophils # (Auto) 0.0 x10^3/uL (0.0-0.7) Basophils # (Auto) 0.0 x10^3/uL (0.0-0.2) Sodium Level 137 mmol/L (136-145) Potassium Level 3.5 mmol/L (3.5-5.1) Chloride Level 103 mmol/L (98-107) Carbon Dioxide Level 24 mmol/L (21-32) Anion Gap 10 (6-14) Blood Urea Nitrogen 11 mg/dL (8-26) Creatinine 0.9 mg/dL (0.7-1.3) Estimated GFR (Cockcroft-Gault) 92.5 Glucose Level 136 mg/dL (70-99) Calcium Level 8.0 mg/dL (8.5-10.1) Test 08/11/16 08:03 Glucose (Fingerstick) 164 mg/dL (70-99) Review of Systems Review of Systems abd pain dry mouth Assessment and Plan Assessmemt and Plan Problems Medical Problems: (1) Diverticulitis Status: Acute Problems: Comment Review of Relevant I have reviewed the following items quincy (where applicable) has been applied. Labs Laboratory Tests Test 08/10/16 09:05 08/10/16 11:20 08/10/16 16:42 08/11/16 00:00 White Blood Count 18.2 x10^3/uL (4.0-11.0) 15.5 x10^3/uL (4.0-11.0) Red Blood Count 4.92 x10^6/uL (4.30-5.70) 4.12 x10^6/uL (4.30-5.70) Hemoglobin 14.1 g/dL (13.0-17.5) 11.9 g/dL (13.0-17.5) Hematocrit 42.7 % (39.0-53.0) 35.4 % (39.0-53.0) Mean Corpuscular Volume 87 fL (79-100) 86 fL (79-100) Mean Corpuscular Hemoglobin 29 pg (25-35) 29 pg (25-35) Mean Corpuscular Hemoglobin Concent 33 g/dL (31-37) 34 g/dL (31-37) Red Cell Distribution Width 14.9 % (11.5-14.5) 14.5 % (11.5-14.5) Platelet Count 211 x10^3/uL (140-400) 163 x10^3/uL (140-400) Neutrophils (%) (Auto) 81 % (31-73) 79 % (31-73) Lymphocytes (%) (Auto) 14 % (24-48) 16 % (24-48) Monocytes (%) (Auto) 5 % (0-9) 5 % (0-9) Eosinophils (%) (Auto) 0 % (0-3) 0 % (0-3) Basophils (%) (Auto) 0 % (0-3) 0 % (0-3) Neutrophils # (Auto) 14.8 x10^3uL (1.8-7.7) 12.2 x10^3uL (1.8-7.7) Lymphocytes # (Auto) 2.5 x10^3/uL (1.0-4.8) 2.5 x10^3/uL (1.0-4.8) Monocytes # (Auto) 0.9 x10^3/uL (0.0-1.1) 0.8 x10^3/uL (0.0-1.1) Eosinophils # (Auto) 0.0 x10^3/uL (0.0-0.7) 0.0 x10^3/uL (0.0-0.7) Basophils # (Auto) 0.0 x10^3/uL (0.0-0.2) 0.0 x10^3/uL (0.0-0.2) Segmented Neutrophils % 76 % (35-66) Band Neutrophils % 6 % (0-9) Lymphocytes % 14 % (24-48) Monocytes % 4 % (0-10) Platelet Estimate Adequate (ADEQUATE) Prothrombin Time 14.1 SEC (11.7-14.0) Prothromb Time International Ratio 1.2 (0.8-1.1) Activated Partial Thromboplast Time 26 SEC (24-38) Sodium Level 137 mmol/L (136-145) 137 mmol/L (136-145) Potassium Level 4.2 mmol/L (3.5-5.1) 3.5 mmol/L (3.5-5.1) Chloride Level 101 mmol/L (98-107) 103 mmol/L (98-107) Carbon Dioxide Level 27 mmol/L (21-32) 24 mmol/L (21-32) Anion Gap 9 (6-14) 10 (6-14) Blood Urea Nitrogen 14 mg/dL (8-26) 11 mg/dL (8-26) Creatinine 1.3 mg/dL (0.7-1.3) 0.9 mg/dL (0.7-1.3) Estimated GFR (Cockcroft-Gault) 60.5 92.5 Glucose Level 208 mg/dL (70-99) 136 mg/dL (70-99) Hemoglobin A1c 6.2 % (4.8-5.6) Calcium Level 9.6 mg/dL (8.5-10.1) 8.0 mg/dL (8.5-10.1) Total Bilirubin 1.6 mg/dL (0.2-1.0) Direct Bilirubin 0.4 mg/dL (0.0-0.2) Aspartate Amino Transf (AST/SGOT) 18 U/L (15-37) Alanine Aminotransferase (ALT/SGPT) 33 U/L (16-63) Alkaline Phosphatase 79 U/L (46-116) Creatine Kinase 105 U/L (39-308) Creatine Kinase MB (Mass) 0.8 ng/mL (0.0-3.6) Creatine Kinase MB Relative Index 0.8 % (0-4) Troponin I Quantitative < 0.017 ng/mL (0.000-0.055) Total Protein 8.0 g/dL (6.4-8.2) Albumin 4.0 g/dL (3.4-5.0) Lipase 104 U/L (73-393) Urine Collection Type Unknown Urine Color Yellow Urine Clarity Clear Urine pH 5.5 Urine Specific [place] 1.020 Urine Protein 30 mg/dL (NEG-TRACE) Urine Glucose (UA) Negative mg/dL (NEG) Urine Ketones (Stick) Negative mg/dL (NEG) Urine Blood Negative (NEG) Urine Nitrite Negative (NEG) Urine Bilirubin Negative (NEG) Urine Urobilinogen Dipstick 0.2 mg/dL (0.2 mg/dL) Urine Leukocyte Esterase Negative (NEG) Urine RBC 0 /HPF (0-2) Urine WBC 0 /HPF (0-4) Urine Squamous Epithelial Cells Occ /LPF Urine Bacteria 0 /HPF (0-FEW) Urine Hyaline Casts Many /HPF Urine Mucus Marked /LPF Urine Opiates Screen Pos (NEG) Urine Methadone Screen Neg (NEG) Urine Barbiturates Neg (NEG) Urine Phencyclidine Screen Neg (NEG) Urine Amphetamine/Methamphetamine Neg (NEG) Urine Benzodiazepines Screen Neg (NEG) Urine Cocaine Screen Neg (NEG) Urine Cannabinoids Screen Neg (NEG) Urine Ethyl Alcohol Neg (NEG) Glucose (Fingerstick) 101 mg/dL (70-99) Test 08/11/16 00:59 08/11/16 08:03 Glucose (Fingerstick) 134 mg/dL (70-99) 164 mg/dL (70-99) Laboratory Tests Test 08/10/16 11:20 08/10/16 16:42 08/11/16 00:00 08/11/16 00:59 Urine Collection Type Unknown Urine Color Yellow Urine Clarity Clear Urine pH 5.5 Urine Specific [place] 1.020 Urine Protein 30 mg/dL (NEG-TRACE) Urine Glucose (UA) Negative mg/dL (NEG) Urine Ketones (Stick) Negative mg/dL (NEG) Urine Blood Negative (NEG) Urine Nitrite Negative (NEG) Urine Bilirubin Negative (NEG) Urine Urobilinogen Dipstick 0.2 mg/dL (0.2 mg/dL) Urine Leukocyte Esterase Negative (NEG) Urine RBC 0 /HPF (0-2) Urine WBC 0 /HPF (0-4) Urine Squamous Epithelial Cells Occ /LPF Urine Bacteria 0 /HPF (0-FEW) Urine Hyaline Casts Many /HPF Urine Mucus Marked /LPF Urine Opiates Screen Pos (NEG) Urine Methadone Screen Neg (NEG) Urine Barbiturates Neg (NEG) Urine Phencyclidine Screen Neg (NEG) Urine Amphetamine/Methamphetamine Neg (NEG) Urine Benzodiazepines Screen Neg (NEG) Urine Cocaine Screen Neg (NEG) Urine Cannabinoids Screen Neg (NEG) Urine Ethyl Alcohol Neg (NEG) Glucose (Fingerstick) 101 mg/dL (70-99) 134 mg/dL (70-99) White Blood Count 15.5 x10^3/uL (4.0-11.0) Red Blood Count 4.12 x10^6/uL (4.30-5.70) Hemoglobin 11.9 g/dL (13.0-17.5) Hematocrit 35.4 % (39.0-53.0) Mean Corpuscular Volume 86 fL (79-100) Mean Corpuscular Hemoglobin 29 pg (25-35) Mean Corpuscular Hemoglobin Concent 34 g/dL (31-37) Red Cell Distribution Width 14.5 % (11.5-14.5) Platelet Count 163 x10^3/uL (140-400) Neutrophils (%) (Auto) 79 % (31-73) Lymphocytes (%) (Auto) 16 % (24-48) Monocytes (%) (Auto) 5 % (0-9) Eosinophils (%) (Auto) 0 % (0-3) Basophils (%) (Auto) 0 % (0-3) Neutrophils # (Auto) 12.2 x10^3uL (1.8-7.7) Lymphocytes # (Auto) 2.5 x10^3/uL (1.0-4.8) Monocytes # (Auto) 0.8 x10^3/uL (0.0-1.1) Eosinophils # (Auto) 0.0 x10^3/uL (0.0-0.7) Basophils # (Auto) 0.0 x10^3/uL (0.0-0.2) Sodium Level 137 mmol/L (136-145) Potassium Level 3.5 mmol/L (3.5-5.1) Chloride Level 103 mmol/L (98-107) Carbon Dioxide Level 24 mmol/L (21-32) Anion Gap 10 (6-14) Blood Urea Nitrogen 11 mg/dL (8-26) Creatinine 0.9 mg/dL (0.7-1.3) Estimated GFR (Cockcroft-Gault) 92.5 Glucose Level 136 mg/dL (70-99) Calcium Level 8.0 mg/dL (8.5-10.1) Test 08/11/16 08:03 Glucose (Fingerstick) 164 mg/dL (70-99) Medications Current Medications Morphine Sulfate 4 mg PRN Q15MIN PRN IV/SQ PAIN GREATER THAN 3/10 Last administered on 08/10/16 11:57; Start 08/10/16 at 09:15; Stop 08/11/16 at 09:14 ; Status DC Sodium Chloride 1,000 ml @ 1,000 mls/hr Q1H IV Last administered on 08/10/16 09:13; Start 08/10/16 at 09:15; Stop 08/10/16 at 10:14; Status DC Ondansetron HCl (Zofran) 4 mg 1X ONCE IV Last administered on 08/10/16 09:14 ; Start 08/10/16 at 09:15; Stop 08/10/16 at 09:16; Status DC Iohexol (Omnipaque 300 Mg/ml) 75 ml 1X ONCE IV Last administered on 08/10/16 09:30; Start 08/10/16 at 09:30; Stop 08/10/16 at 09:31; Status DC Info (Do NOT chart on this entry -- for MONITORING) 1 each PRN DAILY PRN MC SEE COMMENTS; Start 08/10/16 at 09:30; Stop 08/12/16 at 09:29 Ciprofloxacin Lactate 200 ml @ 200 mls/hr Q12HR IV Last administered on 09:01; Start 08/10/16 at 21:00 Metronidazole 100 ml @ 100 mls/hr Q8HRS IV Last administered on 08/11/16 05: 37; Start 08/10/16 at 22:00 Ciprofloxacin Lactate 200 ml @ 200 mls/hr 1X ONCE IV Last administered on 12:00; Start 08/10/16 at 12:00; Stop 08/10/16 at 12:59; Status DC Metronidazole 100 ml @ 100 mls/hr 1X ONCE IV ; Start 08/10/16 at 12:00; Stop 08/10/16 at 12:59; Status DC Ondansetron HCl (Zofran) 4 mg PRN Q8HRS PRN IV NAUSEA/VOMITING; Start 08/10/16 at 11:45; Stop 08/11/16 at 11:44 Morphine Sulfate 4 mg PRN Q2HR PRN IV PAIN Last administered on 08/11/16 07:54 ; Start 08/10/16 at 11:45; Stop 08/12/16 at 23:59 Dextrose/Sodium Chloride 1,000 ml @ 125 mls/hr 1X ONCE IV ; Start 08/10/16 at 11:45; Stop 08/10/16 at 19:44; Status DC Sodium Chloride 1,000 ml @ 1,000 mls/hr 1X ONCE IV ; Start 08/10/16 at 11:45; Stop 08/10/16 at 12:44; Status DC Potassium Chloride/Dextrose/ Sod Cl 1,000 ml @ 125 mls/hr Q8H IV Last administered on 08/11/16 05:37; Start 08/10/16 at 12:45 Insulin Aspart (NovoLOG) 0-7 UNITS TIDWMEALS SQ ; Start 08/10/16 at 17:00; Stop 08/11/16 at 10:41; Status DC Dextrose (Dextrose 50%-Water Syringe) 12.5 gm PRN Q15MIN PRN IV SEE COMMENTS; Start 08/10/16 at 12:45; Stop 08/11/16 at 10:41; Status DC Sodium Chloride 1,000 ml @ 1,000 mls/hr 1X ONCE IV Last administered on 13:57; Start 08/10/16 at 12:45; Stop 08/10/16 at 13:44; Status DC Nicotine Polacrilex (Nicorette Gum) 1 each PRN Q1HR PRN BC SMOKING CESSATION; Start 08/10/16 at 13:00 Nicotine (Nicoderm Cq 14mg) 1 patch PRN DAILY PRN TD SMOKING CESSATION; Start 08/10/16 at 13:00 Morphine Sulfate (Morphine Ir) 15 mg Q4HRS PRN PO PAIN Last administered on 09:03; Start 08/10/16 at 13:00 Fentanyl Citrate (Fentanyl 2ml Vial) 75 mcg 1X ONCE IV Last administered on 13:56; Start 08/10/16 at 13:15; Stop 08/10/16 at 13:16; Status DC Ketorolac Tromethamine (Toradol) 15 mg 1X ONCE IV Last administered on 14:22; Start 08/10/16 at 13:30; Stop 08/10/16 at 13:31; Status DC Acetaminophen (Tylenol) 1,000 mg 1X ONCE PO Last administered on 08/10/16 14: 22; Start 08/10/16 at 13:30; Stop 08/10/16 at 13:31; Status DC Acetaminophen (Tylenol) 650 mg PRN Q6HRS PRN PO FEVER Last administered on 08/11 09:01; Start 08/11/16 at 00:00 Labetalol HCl (Normodyne) 20 mg 1X ONCE IVP Last administered on 08/11/16 00: 32; Start 08/11/16 at 00:00; Stop 08/11/16 at 00:01; Status DC Magnesium Sulfate/ Dextrose 50 ml @ 25 mls/hr 1X ONCE IV ; Start 08/11/16 at 11 :00; Stop 08/11/16 at 12:59 Sodium Chloride 1,000 ml @ 1,000 mls/hr 1X ONCE IV ; Start 08/11/16 at 11:00; Stop 08/11/16 at 11:59 Active Scripts Active Reported Metoprolol Tartrate 50 Mg Tablet 1 Tab PO BID Vitals/I & O Vital Sign - Last 24 Hours 08/10/16 08/10/16 08/10/16 08/10/16 11:20 11:57 12:20 12:50 Pulse 100 101 Resp 21 17 21 B/P (MAP) 133/78 (96) 132/80 (97) Pulse Ox 94 96 92 O2 Delivery Room Air Room Air Room Air Room Air 08/10/16 08/10/16 08/10/16 08/10/16 12:50 13:00 13:00 13:56 Temp 98.7 97.7 97.7 98.7 97.7 97.7 Pulse 101 110 110 Resp 20 20 12 B/P (MAP) 132/80 (97) 143/68 (93) 143/68 (93) Pulse Ox 92 91 91 91 O2 Delivery Room Air Room Air Room Air 08/10/16 08/10/16 08/10/16 08/10/16 14:26 15:00 19:00 20:00 Temp 99.5 100.2 99.5 100.2 Pulse 113 119 Resp 16 20 18 B/P (MAP) 128/86 (100) 155/93 (113) Pulse Ox 91 90 91 O2 Delivery Room Air Room Air Room Air Room Air 08/10/16 08/11/16 08/11/16 08/11/16 23:39 00:32 03:00 07:00 Temp 102.9 99.7 102.0 102.9 99.7 102.0 Pulse 130 130 110 109 Resp 20 20 20 B/P (MAP) 175/110 (131) 175/110 139/86 (103) 142/81 (101) Pulse Ox 90 95 93 O2 Delivery Nasal Cannula Nasal Cannula O2 Flow Rate 2.0 2.0 08/11/16 08/11/16 08/11/16 07:54 08:24 09:03 Resp 16 16 20 O2 Delivery Room Air Room Air Room Air Intake and Output 08/10/16 08/10/16 08/11/16 15:00 23:00 07:00 Intake Total 1000 ml 0 ml Output Total 425 ml 500 ml Balance 1000 ml -425 ml -500 ml ASUNCION GILLETTE MD Aug 11, 2016 11:01
[2016-08-11] MEDS: LABETALOL 20 MG/4 ML DISP.SYRIN. IVP PRN ×2 (15:55→20:28)
[2016-08-11] MEDS: PIPERACILLIN/TAZOBACTAM 4.5 GM in IV NORMAL SALINE 100ML 100 ML IV SCH ×2 (17:46→23:35)
[2016-08-12 03:42] VITALS: BP 139/98
[2016-08-12] MEDS: POTASSIUM CL 20MEQ D5-0.45NACL 1,000 ML IV SCH ×4 (04:45→23:35)
[2016-08-12] MEDS ORDERED: MORPHINE SULFATE 4 MG/ML DISP.SYRIN. IV PRN (06:15)
[2016-08-12] MEDS: PIPERACILLIN/TAZOBACTAM 4.5 GM in IV NORMAL SALINE 100ML 100 ML IV SCH ×4 (06:24→23:35)
[2016-08-12 06:43] LABS: BASO % 0 % (0-3); EOS % 1 % (0-3); HEMATOCRIT 34.2 % (39.0-53.0); HEMOGLOBIN 11.7 g/dL (13.0-17.5); LYMPH # 1.5 x10^3/uL (1.0-4.8); LYMPH % 12 % (24-48); MEAN CORPUSCULAR HEMOGLOBIN 29 pg (25-35); MEAN CORPUSCULAR HGB CONC 34 g/dL (31-37); MEAN CORPUSCULAR VOLUME 85 fL (79-100); MONO % 5 % (0-9); NEUT % 82 % (31-73); PLATELET COUNT 152 x10^3/uL (140-400); RED BLOOD COUNT 4.01 x10^6/uL (4.30-5.70); RED CELL DISTRIBUTION WIDTH 14.5 % (11.5-14.5); WHITE BLOOD COUNT 12.1 x10^3/uL (4.0-11.0)
[2016-08-12 07:00] VITALS: BP 160/100
[2016-08-12 07:27] LABS: ALBUMIN 2.7 g/dL (3.4-5.0); ALBUMIN/GLOBULIN RATIO 0.7 (1.0-1.7); CALCIUM 8.2 mg/dL (8.5-10.1); CREATININE 0.9 mg/dL (0.7-1.3); GFR 92.5; MAGNESIUM 2.3 mg/dL (1.8-2.4); POTASSIUM 3.9 mmol/L (3.5-5.1); TOTAL BILIRUBIN 1.1 mg/dL (0.2-1.0); TOTAL PROTEIN 6.7 g/dL (6.4-8.2)
[2016-08-12] MEDS: ACETAMINOPHEN 325 MG TABLET. PO PRN ×3 (07:38→23:34)
[2016-08-12 11:00] VITALS: BP 168/110
--- NOTE | 2016-08-12 11:18 | PDOC ---
PROGRESS NOTES Chief Complaint Chief Complaint Acute abd pain Diverticulitis Sepsis, hyperglycemia, reactive, obesity, BMI 34 htn, tobaccoism, History of Present Illness History of Present Illness pain persists, but hungry, and wants to eat fever again, tachycardia, white count better consult ID, blood cx yesterday has no result yet would cx again if febrile, cont current abx bolus 1 liter NS now, then 125./hr Vitals Vitals Vital Signs Date Time Temp Pulse Resp B/P (MAP) Pulse Ox O2 Delivery O2 Flow Rate FiO2 08/12/16 11:00 98.2 96 20 168/110 (129) 98 Nasal Cannula 3.0 98.2 Physical Exam General: Alert, Oriented X3, Cooperative, mild distress Heart: Regular rate Lungs: Clear, Wheezing Abdomen: Soft (tender), Other (guarding, sounds hypoactive, no rebound or peritoneal sign) Extremities: No clubbing, No edema, Normal pulses Skin: No rashes, No significant lesion Labs LABS Laboratory Tests Test 08/11/16 11:54 08/11/16 17:06 08/11/16 20:50 08/12/16 04:59 Glucose (Fingerstick) 122 mg/dL (70-99) 148 mg/dL (70-99) 137 mg/dL (70-99) White Blood Count 12.1 x10^3/uL (4.0-11.0) Red Blood Count 4.01 x10^6/uL (4.30-5.70) Hemoglobin 11.7 g/dL (13.0-17.5) Hematocrit 34.2 % (39.0-53.0) Mean Corpuscular Volume 85 fL (79-100) Mean Corpuscular Hemoglobin 29 pg (25-35) Mean Corpuscular Hemoglobin Concent 34 g/dL (31-37) Red Cell Distribution Width 14.5 % (11.5-14.5) Platelet Count 152 x10^3/uL (140-400) Neutrophils (%) (Auto) 82 % (31-73) Lymphocytes (%) (Auto) 12 % (24-48) Monocytes (%) (Auto) 5 % (0-9) Eosinophils (%) (Auto) 1 % (0-3) Basophils (%) (Auto) 0 % (0-3) Neutrophils # (Auto) 9.8 x10^3uL (1.8-7.7) Lymphocytes # (Auto) 1.5 x10^3/uL (1.0-4.8) Monocytes # (Auto) 0.6 x10^3/uL (0.0-1.1) Eosinophils # (Auto) 0.1 x10^3/uL (0.0-0.7) Basophils # (Auto) 0.0 x10^3/uL (0.0-0.2) Sodium Level 138 mmol/L (136-145) Potassium Level 3.9 mmol/L (3.5-5.1) Chloride Level 104 mmol/L (98-107) Carbon Dioxide Level 25 mmol/L (21-32) Anion Gap 9 (6-14) Blood Urea Nitrogen 6 mg/dL (8-26) Creatinine 0.9 mg/dL (0.7-1.3) Estimated GFR (Cockcroft-Gault) 92.5 BUN/Creatinine Ratio 7 (6-20) Glucose Level 135 mg/dL (70-99) Calcium Level 8.2 mg/dL (8.5-10.1) Magnesium Level 2.3 mg/dL (1.8-2.4) Total Bilirubin 1.1 mg/dL (0.2-1.0) Aspartate Amino Transf (AST/SGOT) 11 U/L (15-37) Alanine Aminotransferase (ALT/SGPT) 21 U/L (16-63) Alkaline Phosphatase 78 U/L (46-116) Total Protein 6.7 g/dL (6.4-8.2) Albumin 2.7 g/dL (3.4-5.0) Albumin/Globulin Ratio 0.7 (1.0-1.7) Test 08/12/16 07:24 Glucose (Fingerstick) 143 mg/dL (70-99) Assessment and Plan Assessmemt and Plan Problems Medical Problems: (1) Diverticulitis Status: Acute Problems: Comment Review of Relevant I have reviewed the following items quincy (where applicable) has been applied. Labs Laboratory Tests Test 08/10/16 11:20 08/10/16 16:42 08/11/16 00:00 08/11/16 00:59 Urine Collection Type Unknown Urine Color Yellow Urine Clarity Clear Urine pH 5.5 Urine Specific [place] 1.020 Urine Protein 30 mg/dL (NEG-TRACE) Urine Glucose (UA) Negative mg/dL (NEG) Urine Ketones (Stick) Negative mg/dL (NEG) Urine Blood Negative (NEG) Urine Nitrite Negative (NEG) Urine Bilirubin Negative (NEG) Urine Urobilinogen Dipstick 0.2 mg/dL (0.2 mg/dL) Urine Leukocyte Esterase Negative (NEG) Urine RBC 0 /HPF (0-2) Urine WBC 0 /HPF (0-4) Urine Squamous Epithelial Cells Occ /LPF Urine Bacteria 0 /HPF (0-FEW) Urine Hyaline Casts Many /HPF Urine Mucus Marked /LPF Urine Opiates Screen Pos (NEG) Urine Methadone Screen Neg (NEG) Urine Barbiturates Neg (NEG) Urine Phencyclidine Screen Neg (NEG) Urine Amphetamine/Methamphetamine Neg (NEG) Urine Benzodiazepines Screen Neg (NEG) Urine Cocaine Screen Neg (NEG) Urine Cannabinoids Screen Neg (NEG) Urine Ethyl Alcohol Neg (NEG) Glucose (Fingerstick) 101 mg/dL (70-99) 134 mg/dL (70-99) White Blood Count 15.5 x10^3/uL (4.0-11.0) Red Blood Count 4.12 x10^6/uL (4.30-5.70) Hemoglobin 11.9 g/dL (13.0-17.5) Hematocrit 35.4 % (39.0-53.0) Mean Corpuscular Volume 86 fL (79-100) Mean Corpuscular Hemoglobin 29 pg (25-35) Mean Corpuscular Hemoglobin Concent 34 g/dL (31-37) Red Cell Distribution Width 14.5 % (11.5-14.5) Platelet Count 163 x10^3/uL (140-400) Neutrophils (%) (Auto) 79 % (31-73) Lymphocytes (%) (Auto) 16 % (24-48) Monocytes (%) (Auto) 5 % (0-9) Eosinophils (%) (Auto) 0 % (0-3) Basophils (%) (Auto) 0 % (0-3) Neutrophils # (Auto) 12.2 x10^3uL (1.8-7.7) Lymphocytes # (Auto) 2.5 x10^3/uL (1.0-4.8) Monocytes # (Auto) 0.8 x10^3/uL (0.0-1.1) Eosinophils # (Auto) 0.0 x10^3/uL (0.0-0.7) Basophils # (Auto) 0.0 x10^3/uL (0.0-0.2) Sodium Level 137 mmol/L (136-145) Potassium Level 3.5 mmol/L (3.5-5.1) Chloride Level 103 mmol/L (98-107) Carbon Dioxide Level 24 mmol/L (21-32) Anion Gap 10 (6-14) Blood Urea Nitrogen 11 mg/dL (8-26) Creatinine 0.9 mg/dL (0.7-1.3) Estimated GFR (Cockcroft-Gault) 92.5 Glucose Level 136 mg/dL (70-99) Calcium Level 8.0 mg/dL (8.5-10.1) Test 08/11/16 08:03 08/11/16 11:54 08/11/16 17:06 08/11/16 20:50 Glucose (Fingerstick) 164 mg/dL (70-99) 122 mg/dL (70-99) 148 mg/dL (70-99) 137 mg/dL (70-99) Test 08/12/16 04:59 08/12/16 07:24 White Blood Count 12.1 x10^3/uL (4.0-11.0) Red Blood Count 4.01 x10^6/uL (4.30-5.70) Hemoglobin 11.7 g/dL (13.0-17.5) Hematocrit 34.2 % (39.0-53.0) Mean Corpuscular Volume 85 fL (79-100) Mean Corpuscular Hemoglobin 29 pg (25-35) Mean Corpuscular Hemoglobin Concent 34 g/dL (31-37) Red Cell Distribution Width 14.5 % (11.5-14.5) Platelet Count 152 x10^3/uL (140-400) Neutrophils (%) (Auto) 82 % (31-73) Lymphocytes (%) (Auto) 12 % (24-48) Monocytes (%) (Auto) 5 % (0-9) Eosinophils (%) (Auto) 1 % (0-3) Basophils (%) (Auto) 0 % (0-3) Neutrophils # (Auto) 9.8 x10^3uL (1.8-7.7) Lymphocytes # (Auto) 1.5 x10^3/uL (1.0-4.8) Monocytes # (Auto) 0.6 x10^3/uL (0.0-1.1) Eosinophils # (Auto) 0.1 x10^3/uL (0.0-0.7) Basophils # (Auto) 0.0 x10^3/uL (0.0-0.2) Sodium Level 138 mmol/L (136-145) Potassium Level 3.9 mmol/L (3.5-5.1) Chloride Level 104 mmol/L (98-107) Carbon Dioxide Level 25 mmol/L (21-32) Anion Gap 9 (6-14) Blood Urea Nitrogen 6 mg/dL (8-26) Creatinine 0.9 mg/dL (0.7-1.3) Estimated GFR (Cockcroft-Gault) 92.5 BUN/Creatinine Ratio 7 (6-20) Glucose Level 135 mg/dL (70-99) Calcium Level 8.2 mg/dL (8.5-10.1) Magnesium Level 2.3 mg/dL (1.8-2.4) Total Bilirubin 1.1 mg/dL (0.2-1.0) Aspartate Amino Transf (AST/SGOT) 11 U/L (15-37) Alanine Aminotransferase (ALT/SGPT) 21 U/L (16-63) Alkaline Phosphatase 78 U/L (46-116) Total Protein 6.7 g/dL (6.4-8.2) Albumin 2.7 g/dL (3.4-5.0) Albumin/Globulin Ratio 0.7 (1.0-1.7) Glucose (Fingerstick) 143 mg/dL (70-99) Laboratory Tests Test 08/11/16 11:54 08/11/16 17:06 08/11/16 20:50 08/12/16 04:59 Glucose (Fingerstick) 122 mg/dL (70-99) 148 mg/dL (70-99) 137 mg/dL (70-99) White Blood Count 12.1 x10^3/uL (4.0-11.0) Red Blood Count 4.01 x10^6/uL (4.30-5.70) Hemoglobin 11.7 g/dL (13.0-17.5) Hematocrit 34.2 % (39.0-53.0) Mean Corpuscular Volume 85 fL (79-100) Mean Corpuscular Hemoglobin 29 pg (25-35) Mean Corpuscular Hemoglobin Concent 34 g/dL (31-37) Red Cell Distribution Width 14.5 % (11.5-14.5) Platelet Count 152 x10^3/uL (140-400) Neutrophils (%) (Auto) 82 % (31-73) Lymphocytes (%) (Auto) 12 % (24-48) Monocytes (%) (Auto) 5 % (0-9) Eosinophils (%) (Auto) 1 % (0-3) Basophils (%) (Auto) 0 % (0-3) Neutrophils # (Auto) 9.8 x10^3uL (1.8-7.7) Lymphocytes # (Auto) 1.5 x10^3/uL (1.0-4.8) Monocytes # (Auto) 0.6 x10^3/uL (0.0-1.1) Eosinophils # (Auto) 0.1 x10^3/uL (0.0-0.7) Basophils # (Auto) 0.0 x10^3/uL (0.0-0.2) Sodium Level 138 mmol/L (136-145) Potassium Level 3.9 mmol/L (3.5-5.1) Chloride Level 104 mmol/L (98-107) Carbon Dioxide Level 25 mmol/L (21-32) Anion Gap 9 (6-14) Blood Urea Nitrogen 6 mg/dL (8-26) Creatinine 0.9 mg/dL (0.7-1.3) Estimated GFR (Cockcroft-Gault) 92.5 BUN/Creatinine Ratio 7 (6-20) Glucose Level 135 mg/dL (70-99) Calcium Level 8.2 mg/dL (8.5-10.1) Magnesium Level 2.3 mg/dL (1.8-2.4) Total Bilirubin 1.1 mg/dL (0.2-1.0) Aspartate Amino Transf (AST/SGOT) 11 U/L (15-37) Alanine Aminotransferase (ALT/SGPT) 21 U/L (16-63) Alkaline Phosphatase 78 U/L (46-116) Total Protein 6.7 g/dL (6.4-8.2) Albumin 2.7 g/dL (3.4-5.0) Albumin/Globulin Ratio 0.7 (1.0-1.7) Test 08/12/16 07:24 Glucose (Fingerstick) 143 mg/dL (70-99) Microbiology 08/11/16 Blood Culture - Preliminary, Resulted NO GROWTH AFTER 1 DAY Medications Current Medications Morphine Sulfate 4 mg PRN Q15MIN PRN IV/SQ PAIN GREATER THAN 3/10 Last administered on 08/10/16 11:57; Start 08/10/16 at 09:15; Stop 08/11/16 at 09:14 ; Status DC Sodium Chloride 1,000 ml @ 1,000 mls/hr Q1H IV Last administered on 08/10/16 09:13; Start 08/10/16 at 09:15; Stop 08/10/16 at 10:14; Status DC Ondansetron HCl (Zofran) 4 mg 1X ONCE IV Last administered on 08/10/16 09:14 ; Start 08/10/16 at 09:15; Stop 08/10/16 at 09:16; Status DC Iohexol (Omnipaque 300 Mg/ml) 75 ml 1X ONCE IV Last administered on 08/10/16 09:30; Start 08/10/16 at 09:30; Stop 08/10/16 at 09:31; Status DC Info (Do NOT chart on this entry -- for MONITORING) 1 each PRN DAILY PRN MC SEE COMMENTS; Start 08/10/16 at 09:30; Stop 08/12/16 at 09:29; Status DC Ciprofloxacin Lactate 200 ml @ 200 mls/hr Q12HR IV Last administered on 09:01; Start 08/10/16 at 21:00; Stop 08/11/16 at 14:28; Status DC Metronidazole 100 ml @ 100 mls/hr Q8HRS IV Last administered on 08/11/16 14: 14; Start 08/10/16 at 22:00; Stop 08/11/16 at 14:28; Status DC Ciprofloxacin Lactate 200 ml @ 200 mls/hr 1X ONCE IV Last administered on 12:00; Start 08/10/16 at 12:00; Stop 08/10/16 at 12:59; Status DC Metronidazole 100 ml @ 100 mls/hr 1X ONCE IV ; Start 08/10/16 at 12:00; Stop 08/10/16 at 12:59; Status DC Ondansetron HCl (Zofran) 4 mg PRN Q8HRS PRN IV NAUSEA/VOMITING; Start 08/10/16 at 11:45; Stop 08/11/16 at 11:44; Status DC Morphine Sulfate 4 mg PRN Q2HR PRN IV PAIN Last administered on 08/11/16 22:22 ; Start 08/10/16 at 11:45; Stop 08/12/16 at 06:02; Status DC Dextrose/Sodium Chloride 1,000 ml @ 125 mls/hr 1X ONCE IV ; Start 08/10/16 at 11:45; Stop 08/10/16 at 19:44; Status DC Sodium Chloride 1,000 ml @ 1,000 mls/hr 1X ONCE IV ; Start 08/10/16 at 11:45; Stop 08/10/16 at 12:44; Status DC Potassium Chloride/Dextrose/ Sod Cl 1,000 ml @ 125 mls/hr Q8H IV Last administered on 08/12/16 07:39; Start 08/10/16 at 12:45 Insulin Aspart (NovoLOG) 0-7 UNITS TIDWMEALS SQ ; Start 08/10/16 at 17:00; Stop 08/11/16 at 10:41; Status DC Dextrose (Dextrose 50%-Water Syringe) 12.5 gm PRN Q15MIN PRN IV SEE COMMENTS; Start 08/10/16 at 12:45; Stop 08/11/16 at 10:41; Status DC Sodium Chloride 1,000 ml @ 1,000 mls/hr 1X ONCE IV Last administered on 13:57; Start 08/10/16 at 12:45; Stop 08/10/16 at 13:44; Status DC Nicotine Polacrilex (Nicorette Gum) 1 each PRN Q1HR PRN BC SMOKING CESSATION; Start 08/10/16 at 13:00 Nicotine (Nicoderm Cq 14mg) 1 patch PRN DAILY PRN TD SMOKING CESSATION; Start 08/10/16 at 13:00 Morphine Sulfate (Morphine Ir) 15 mg Q4HRS PRN PO PAIN Last administered on 09:03; Start 08/10/16 at 13:00 Fentanyl Citrate (Fentanyl 2ml Vial) 75 mcg 1X ONCE IV Last administered on 13:56; Start 08/10/16 at 13:15; Stop 08/10/16 at 13:16; Status DC Ketorolac Tromethamine (Toradol) 15 mg 1X ONCE IV Last administered on 14:22; Start 08/10/16 at 13:30; Stop 08/10/16 at 13:31; Status DC Acetaminophen (Tylenol) 1,000 mg 1X ONCE PO Last administered on 08/10/16 14: 22; Start 08/10/16 at 13:30; Stop 08/10/16 at 13:31; Status DC Acetaminophen (Tylenol) 650 mg PRN Q6HRS PRN PO FEVER Last administered on 08/12 07:38; Start 08/11/16 at 00:00 Labetalol HCl (Normodyne) 20 mg 1X ONCE IVP Last administered on 08/11/16 00: 32; Start 08/11/16 at 00:00; Stop 08/11/16 at 00:01; Status DC Magnesium Sulfate/ Dextrose 50 ml @ 25 mls/hr 1X ONCE IV Last administered on 08/11/16 11:04; Start 08/11/16 at 11:00; Stop 08/11/16 at 12:59; Status DC Sodium Chloride 1,000 ml @ 1,000 mls/hr 1X ONCE IV Last administered on 11:03; Start 08/11/16 at 11:00; Stop 08/11/16 at 11:59; Status DC Throat Lozenges (Cepacol Sore Throat Lozenge) 1 oliva PRN Q2HRS PRN PO SORE THROAT Last administered on 08/11/16 11:07; Start 08/11/16 at 11:00 Saliva Substitute (Biotene Moisturizing Mouth) 2 spray PRN Q15MIN PRN PO DRY MOUTH Last administered on 08/11/16 15:49; Start 08/11/16 at 11:00 Piperacillin Sod/ Tazobactam Sod 4.5 gm/Sodium Chloride 100 ml @ 200 mls/hr Q6HRS IV Last administered on 08/12/16 06:24; Start 08/11/16 at 18:00 Labetalol HCl (Normodyne) 20 mg PRN Q4HRS PRN IVP HYPERTENSION, SEE COMMENTS Last administered on 08/11/16 20:28; Start 08/11/16 at 15:45 Morphine Sulfate 4 mg PRN Q2HR PRN IV PAIN; Start 08/12/16 at 06:15 Active Scripts Active Reported Metoprolol Tartrate 50 Mg Tablet 1 Tab PO BID Vitals/I & O Vital Sign - Last 24 Hours 08/11/16 08/11/16 08/11/16 08/11/16 14:08 15:00 15:55 15:58 Temp 97.7 97.7 Pulse 119 119 Resp 16 20 20 B/P (MAP) 179/99 (125) 179/99 Pulse Ox 88 O2 Delivery Nasal Cannula Room Air Nasal Cannula O2 Flow Rate 2.0 3.0 08/11/16 08/11/16 08/11/16 08/11/16 16:28 19:30 19:49 19:56 Temp 100.6 100.6 Pulse 113 Resp 20 18 B/P (MAP) 167/102 (123) Pulse Ox 88 94 O2 Delivery Nasal Cannula Nasal Cannula Nasal Cannula O2 Flow Rate 3.0 3.0 3.0 08/11/16 08/11/16 08/11/16 08/11/16 20:22 20:28 21:30 22:22 Pulse 113 B/P (MAP) 171/109 (129) 171/109 136/89 (105) Pulse Ox 94 O2 Delivery Nasal Cannula O2 Flow Rate 3.0 08/11/16 08/11/16 08/12/16 08/12/16 22:55 23:12 03:42 07:00 Temp 98.1 99.1 99.5 98.1 99.1 99.5 Pulse 93 101 107 Resp 18 18 20 B/P (MAP) 129/81 (97) 139/98 (112) 160/100 (120) Pulse Ox 94 97 97 97 O2 Delivery Nasal Cannula Nasal Cannula Nasal Cannula Nasal Cannula O2 Flow Rate 3.0 3.0 3.0 3.0 08/12/16 11:00 Temp 98.2 98.2 Pulse 96 Resp 20 B/P (MAP) 168/110 (129) Pulse Ox 98 O2 Delivery Nasal Cannula O2 Flow Rate 3.0 Intake and Output 08/11/16 08/11/16 08/12/16 15:00 23:00 07:00 Output Total 1200 ml Balance -1200 ml ASUNCION GILLETTE MD Aug 12, 2016 11:18
--- NOTE | 2016-08-12 12:02 | PDOC ---
Subjective: Subjective: Feeling better. Less pain, had a loose stool, passing a lot of gas, getting up and walking some. Objective: Objective: Tmax 99.5 D/w Dr. Mclaughlin - less pain, try clears. Vital Signs: Vital Signs Date Time Temp Pulse Resp B/P (MAP) Pulse Ox O2 Delivery O2 Flow Rate FiO2 08/12/16 11:00 98.2 96 20 168/110 (129) 98 Nasal Cannula 3.0 98.2 Labs: Laboratory Tests Test 08/11/16 11:54 08/11/16 17:06 08/11/16 20:50 08/12/16 07:24 Glucose (Fingerstick) 122 mg/dL (70-99) 148 mg/dL (70-99) 137 mg/dL (70-99) 143 mg/dL (70-99) Test 08/12/16 11:41 Glucose (Fingerstick) 137 mg/dL (70-99) PE: GEN: NAD LUNGS: CTAB HEART: RRR ABD: NABS, S/ND/NT NEURO/PSYCH: A & O 3 A/P: Sigmoid diverticulitis -first episode, no previous colonoscopy -abd pain improved today -on IV Flagyl and Cipro Leukocytosis (better), fever (low grade) tachycardia, HTN -- Improved, plans to try clears. Outpt colonoscopy down the road. YOMAIRA THOMPSON Aug 12, 2016 12:02
[2016-08-12 15:00] VITALS: BP 169/107
--- NOTE | 2016-08-12 15:57 | PDOC ---
Infectious Disease Note Subjective Subjective 40 year old male admit with sudden onset of severe abd pain. Pain 0300 last night, acute pain, but tried to keep working, brought to ER by a coworker. Crampy pain, 7/10, worse with standing or walking, min. improvement with IV morphine. no fever or chills, urine has been darker, and some pain when urinting, but may be abdominal pain. Htn history, no PCP ROS ROS GEN: Denies fevers, chills, sweats HEENT: Denies blurred vision, sore throat CV: Denies chest pain RESP: Denies shortness of air, cough GI: Denies n/v/d NEURO: Denies confusion, dizziness MSK: Denies weakness, joint pain/swelling Vital Sign Vital Signs Vital Signs Date Time Temp Pulse Resp B/P (MAP) Pulse Ox O2 Delivery O2 Flow Rate FiO2 08/12/16 15:00 98.8 99 20 169/107 (127) 98 Nasal Cannula 3.0 98.8 Physical Exam PHYSICAL EXAM GENERAL: NAD, Alert HEENT: PERRL, OC/OP NECK: Supple, no JVD, no LN LUNGS: Clear HEART: S1S2, no gallop, no murmur ABD: Soft, NT, no organomegaly, no rebound, mild tenderness EXT: No edema, no cyanosis 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, oriented x 3, no focal neurologic deficit SKIN: No rash IV: ok Labs Lab Laboratory Tests Test 08/11/16 17:06 08/11/16 20:50 08/12/16 04:59 08/12/16 07:24 Glucose (Fingerstick) 148 mg/dL (70-99) 137 mg/dL (70-99) 143 mg/dL (70-99) White Blood Count 12.1 x10^3/uL (4.0-11.0) Red Blood Count 4.01 x10^6/uL (4.30-5.70) Hemoglobin 11.7 g/dL (13.0-17.5) Hematocrit 34.2 % (39.0-53.0) Mean Corpuscular Volume 85 fL (79-100) Mean Corpuscular Hemoglobin 29 pg (25-35) Mean Corpuscular Hemoglobin Concent 34 g/dL (31-37) Red Cell Distribution Width 14.5 % (11.5-14.5) Platelet Count 152 x10^3/uL (140-400) Neutrophils (%) (Auto) 82 % (31-73) Lymphocytes (%) (Auto) 12 % (24-48) Monocytes (%) (Auto) 5 % (0-9) Eosinophils (%) (Auto) 1 % (0-3) Basophils (%) (Auto) 0 % (0-3) Neutrophils # (Auto) 9.8 x10^3uL (1.8-7.7) Lymphocytes # (Auto) 1.5 x10^3/uL (1.0-4.8) Monocytes # (Auto) 0.6 x10^3/uL (0.0-1.1) Eosinophils # (Auto) 0.1 x10^3/uL (0.0-0.7) Basophils # (Auto) 0.0 x10^3/uL (0.0-0.2) Sodium Level 138 mmol/L (136-145) Potassium Level 3.9 mmol/L (3.5-5.1) Chloride Level 104 mmol/L (98-107) Carbon Dioxide Level 25 mmol/L (21-32) Anion Gap 9 (6-14) Blood Urea Nitrogen 6 mg/dL (8-26) Creatinine 0.9 mg/dL (0.7-1.3) Estimated GFR (Cockcroft-Gault) 92.5 BUN/Creatinine Ratio 7 (6-20) Glucose Level 135 mg/dL (70-99) Calcium Level 8.2 mg/dL (8.5-10.1) Magnesium Level 2.3 mg/dL (1.8-2.4) Total Bilirubin 1.1 mg/dL (0.2-1.0) Aspartate Amino Transf (AST/SGOT) 11 U/L (15-37) Alanine Aminotransferase (ALT/SGPT) 21 U/L (16-63) Alkaline Phosphatase 78 U/L (46-116) Total Protein 6.7 g/dL (6.4-8.2) Albumin 2.7 g/dL (3.4-5.0) Albumin/Globulin Ratio 0.7 (1.0-1.7) Test 08/12/16 11:41 Glucose (Fingerstick) 137 mg/dL (70-99) Objective Assessment Diverticulitis Leukocytosis HTN Plan Plan of Care cont antibiotics supportive care liquid diet DAMIAN FAUSTIN MD Aug 12, 2016 15:57
[2016-08-12] MEDS: MORPHINE IR 15 MG TABLET PO PRN ×2 (16:50→21:48)
[2016-08-12 19:42] VITALS: BP 151/98
[2016-08-12 23:39] VITALS: BP 147/64
[2016-08-13 03:54] VITALS: BP 153/105
[2016-08-13] MEDS: PIPERACILLIN/TAZOBACTAM 4.5 GM in IV NORMAL SALINE 100ML 100 ML IV SCH ×4 (05:55→23:14)
[2016-08-13] MEDS: MORPHINE IR 15 MG TABLET PO PRN ×2 (05:57→23:15)
[2016-08-13 07:00] VITALS: BP 168/107
[2016-08-13 11:00] VITALS: BP 177/107
--- NOTE | 2016-08-13 12:28 | PDOC ---
Infectious Disease Note Subjective Subjective Abdominal pain much better, just feeling sore Tolerating clear liquids well, but hungry wants something solid to eat. Low-grade fever, Tmax 100.9 ROS ROS GEN: Denies chills, sweats CV: Denies chest pain RESP: Denies shortness of air, cough GI: Denies n/v/d Vital Sign Vital Signs Vital Signs Date Time Temp Pulse Resp B/P (MAP) Pulse Ox O2 Delivery O2 Flow Rate FiO2 08/13/16 11:00 97.7 91 20 177/107 (130) 95 Room Air 97.7 08/13/16 05:57 3.0 Physical Exam PHYSICAL EXAM GENERAL: Propped up in bed, joking LUNGS: Clear HEART: S1 and S2 ABD: Obese, BS active, soft, NT, no rebound EXT: No edema, no cyanosis IN HOUSE CRA: Alert, oriented x 3, no focal neurologic deficit SKIN: No rash IV: ok Labs Lab Laboratory Tests Test 08/12/16 16:51 08/13/16 07:28 08/13/16 11:35 Glucose (Fingerstick) 112 mg/dL (70-99) 149 mg/dL (70-99) 110 mg/dL (70-99) Micro BLOOD CULTURE Preliminary NO GROWTH AFTER 2 DAYS Objective Assessment Diverticulitis Leukocytosis Fever HTN Plan Plan of Care Zosyn Supportive care Attending Co-Sign The patient was seen and interviewed as well as examined at the bedside. The chart was reviewed. The case was discussed. Agree with the plan of care. YOLA BORGES APRN Aug 13, 2016 12:28 DAMIAN FAUSTIN MD Aug 13, 2016 13:51
[2016-08-13] MEDS: POTASSIUM CL 20MEQ D5-0.45NACL 1,000 ML IV SCH (12:45)
--- NOTE | 2016-08-13 14:54 | PDOC ---
PROGRESS NOTES Chief Complaint Chief Complaint Acute abd pain ASSESSMENT AND PLAN: 1. Diverticulitis: on Zosyn. LLQ pain persisting. + diarrhea. cont clear liquid diet. 2. Pain control: adequate. on IV morphine PRN 2. Sepsis: remains febrile (100.9 at MN), but stable VS and improving leukocytosis. monitor 3. DM2: BG>200, but HgbA1c 6.2. currently well controlled. cont ISS for now 4. HTN: borderline high. restart home metoprolol 5. Tobaccoism: on nicotine gum 6. Obesity, BMI 34 7. Prophylaxis: PPI, Lovenox History of Present Illness History of Present Illness wants to eat, but understands the rationale for going slow. pain not worse with eating. new watery diarrhea, no blood Vitals Vitals Vital Signs Date Time Temp Pulse Resp B/P (MAP) Pulse Ox O2 Delivery O2 Flow Rate FiO2 08/13/16 11:00 97.7 91 20 177/107 (130) 95 Room Air 97.7 08/13/16 05:57 3.0 Physical Exam General: Alert, Oriented X3, Cooperative, mild distress Heart: Regular rate Lungs: Clear, Wheezing Abdomen: Soft (tender), Other (guarding, sounds hypoactive, no rebound or peritoneal sign) Extremities: No clubbing, No edema, Normal pulses Skin: No rashes, No significant lesion Labs LABS Laboratory Tests Test 08/12/16 16:51 08/13/16 07:28 08/13/16 11:35 Glucose (Fingerstick) 112 mg/dL (70-99) 149 mg/dL (70-99) 110 mg/dL (70-99) MILE DEE MD Aug 13, 2016 14:54
[2016-08-13 15:00] VITALS: BP 165/99
[2016-08-13] MEDS: METOPROLOL TART IMMED RELEASE 50 MG TABLET. PO SCH ×2 (15:16→20:21)
[2016-08-13] MEDS: FAMOTIDINE 20 MG TABLET. PO SCH ×2 (15:16→20:21)
[2016-08-13] MEDS: ENOXAPARIN 40 MG/0.4 ML SYRINGE. SQ SCH (15:17)
[2016-08-13] MEDS: POTASSIUM CL 20MEQ-0.45% NACL 1,000 ML IV SCH (18:40)
[2016-08-13 19:10] VITALS: BP 169/119
[2016-08-13 23:30] VITALS: BP 163/109
[2016-08-14 03:07] VITALS: BP 146/100
[2016-08-14 05:13] LABS: BASO % 1 % (0-3); EOS % 3 % (0-3); HEMATOCRIT 36.8 % (39.0-53.0); HEMOGLOBIN 12.4 g/dL (13.0-17.5); LYMPH # 2.4 x10^3/uL (1.0-4.8); LYMPH % 29 % (24-48); MEAN CORPUSCULAR HEMOGLOBIN 29 pg (25-35); MEAN CORPUSCULAR HGB CONC 34 g/dL (31-37); MEAN CORPUSCULAR VOLUME 86 fL (79-100); MONO % 8 % (0-9); NEUT % 60 % (31-73); PLATELET COUNT 230 x10^3/uL (140-400); RED CELL DISTRIBUTION WIDTH 14.8 % (11.5-14.5); WHITE BLOOD COUNT 8.4 x10^3/uL (4.0-11.0)
[2016-08-14 05:42] LABS: CALCIUM 9.2 mg/dL (8.5-10.1); CREATININE 0.9 mg/dL (0.7-1.3); GFR 92.5; POTASSIUM 3.7 mmol/L (3.5-5.1)
[2016-08-14] MEDS: PIPERACILLIN/TAZOBACTAM 4.5 GM in IV NORMAL SALINE 100ML 100 ML IV SCH ×3 (06:00→18:24)
[2016-08-14 07:00] VITALS: BP 155/97
[2016-08-14] MEDS: POTASSIUM CL 20MEQ-0.45% NACL 1,000 ML IV SCH ×2 (07:20→10:25)
--- NOTE | 2016-08-14 08:55 | PDOC ---
PROGRESS NOTES Chief Complaint Chief Complaint Acute abd pain ASSESSMENT AND PLAN: 1. Diverticulitis: on Zosyn. advance diet 2. Pain control: adequate. on IV morphine PRN. switch to PO with liberated diet 2. Sepsis: afeb x24h, stable VS and improving leukocytosis. monitor 3. DM2: BG>200, but HgbA1c 6.2. currently well controlled. cont ISS for now 4. HTN: borderline high. restart home metoprolol 5. Tobaccoism: on nicotine gum 6. Obesity, BMI 34 7. Prophylaxis: PPI, Lovenox History of Present Illness History of Present Illness pain improved. Hungry! Vitals Vitals Vital Signs Date Time Temp Pulse Resp B/P (MAP) Pulse Ox O2 Delivery O2 Flow Rate FiO2 08/14/16 07:00 99.1 79 16 155/97 (116) 93 Room Air 99.1 Physical Exam General: Alert, Oriented X3, Cooperative, No acute distress Heart: Regular rate Lungs: Clear, Wheezing Abdomen: Soft (tender), Other (guarding, sounds hypoactive, no rebound or peritoneal sign) Extremities: No edema Skin: No rashes Labs LABS Laboratory Tests Test 08/13/16 11:35 08/13/16 16:32 08/13/16 20:58 08/14/16 04:32 Glucose (Fingerstick) 110 mg/dL (70-99) 92 mg/dL (70-99) 88 mg/dL (70-99) White Blood Count 8.4 x10^3/uL (4.0-11.0) Red Blood Count 4.30 x10^6/uL (4.30-5.70) Hemoglobin 12.4 g/dL (13.0-17.5) Hematocrit 36.8 % (39.0-53.0) Mean Corpuscular Volume 86 fL (79-100) Mean Corpuscular Hemoglobin 29 pg (25-35) Mean Corpuscular Hemoglobin Concent 34 g/dL (31-37) Red Cell Distribution Width 14.8 % (11.5-14.5) Platelet Count 230 x10^3/uL (140-400) Neutrophils (%) (Auto) 60 % (31-73) Lymphocytes (%) (Auto) 29 % (24-48) Monocytes (%) (Auto) 8 % (0-9) Eosinophils (%) (Auto) 3 % (0-3) Basophils (%) (Auto) 1 % (0-3) Neutrophils # (Auto) 5.0 x10^3uL (1.8-7.7) Lymphocytes # (Auto) 2.4 x10^3/uL (1.0-4.8) Monocytes # (Auto) 0.7 x10^3/uL (0.0-1.1) Eosinophils # (Auto) 0.3 x10^3/uL (0.0-0.7) Basophils # (Auto) 0.0 x10^3/uL (0.0-0.2) Sodium Level 139 mmol/L (136-145) Potassium Level 3.7 mmol/L (3.5-5.1) Chloride Level 103 mmol/L (98-107) Carbon Dioxide Level 25 mmol/L (21-32) Anion Gap 11 (6-14) Blood Urea Nitrogen 9 mg/dL (8-26) Creatinine 0.9 mg/dL (0.7-1.3) Estimated GFR (Cockcroft-Gault) 92.5 Glucose Level 119 mg/dL (70-99) Calcium Level 9.2 mg/dL (8.5-10.1) Test 08/14/16 07:26 Glucose (Fingerstick) 97 mg/dL (70-99) MILE DEE MD Aug 14, 2016 08:55
[2016-08-14] MEDS: ACETAMINOPHEN 325 MG TABLET. PO PRN (09:49)
[2016-08-14] MEDS: FAMOTIDINE 20 MG TABLET. PO SCH ×2 (09:50→20:22)
[2016-08-14] MEDS: METOPROLOL TART IMMED RELEASE 50 MG TABLET. PO SCH ×2 (09:50→20:22)
[2016-08-14 10:50] VITALS: BP 150/100
--- NOTE | 2016-08-14 13:51 | PDOC ---
Infectious Disease Note Subjective Subjective Tolerating soft diet No fever last 24 hours ROS ROS GEN: Denies chills, sweats CV: Denies chest pain RESP: Denies shortness of air, cough GI: Denies n/v/d Vital Sign Vital Signs Vital Signs Date Time Temp Pulse Resp B/P (MAP) Pulse Ox O2 Delivery O2 Flow Rate FiO2 08/14/16 10:50 97.7 79 16 150/100 (117) 96 Room Air 97.7 Physical Exam PHYSICAL EXAM GENERAL: Propped up in bed, joking LUNGS: Clear HEART: S1 and S2 ABD: Obese, soft, NT, no rebound EXT: No edema, no cyanosis LABOR EXPEDITER: Alert, oriented x 3, no focal neurologic deficit SKIN: No rash IV: ok Labs Lab Laboratory Tests Test 08/13/16 16:32 08/13/16 20:58 08/14/16 04:32 08/14/16 07:26 Glucose (Fingerstick) 92 mg/dL (70-99) 88 mg/dL (70-99) 97 mg/dL (70-99) White Blood Count 8.4 x10^3/uL (4.0-11.0) Red Blood Count 4.30 x10^6/uL (4.30-5.70) Hemoglobin 12.4 g/dL (13.0-17.5) Hematocrit 36.8 % (39.0-53.0) Mean Corpuscular Volume 86 fL (79-100) Mean Corpuscular Hemoglobin 29 pg (25-35) Mean Corpuscular Hemoglobin Concent 34 g/dL (31-37) Red Cell Distribution Width 14.8 % (11.5-14.5) Platelet Count 230 x10^3/uL (140-400) Neutrophils (%) (Auto) 60 % (31-73) Lymphocytes (%) (Auto) 29 % (24-48) Monocytes (%) (Auto) 8 % (0-9) Eosinophils (%) (Auto) 3 % (0-3) Basophils (%) (Auto) 1 % (0-3) Neutrophils # (Auto) 5.0 x10^3uL (1.8-7.7) Lymphocytes # (Auto) 2.4 x10^3/uL (1.0-4.8) Monocytes # (Auto) 0.7 x10^3/uL (0.0-1.1) Eosinophils # (Auto) 0.3 x10^3/uL (0.0-0.7) Basophils # (Auto) 0.0 x10^3/uL (0.0-0.2) Sodium Level 139 mmol/L (136-145) Potassium Level 3.7 mmol/L (3.5-5.1) Chloride Level 103 mmol/L (98-107) Carbon Dioxide Level 25 mmol/L (21-32) Anion Gap 11 (6-14) Blood Urea Nitrogen 9 mg/dL (8-26) Creatinine 0.9 mg/dL (0.7-1.3) Estimated GFR (Cockcroft-Gault) 92.5 Glucose Level 119 mg/dL (70-99) Calcium Level 9.2 mg/dL (8.5-10.1) Test 08/14/16 11:51 Glucose (Fingerstick) 107 mg/dL (70-99) Micro BLOOD CULTURE Preliminary NO GROWTH AFTER 3 DAYS Objective Assessment Diverticulitis Leukocytosis Fever HTN Plan Plan of Care Zosyn, change to po soon Supportive care D/w Attending Co-Sign The patient was seen and interviewed as well as examined at the bedside. The chart was reviewed. The case was discussed. Agree with the plan of care. YOLA BORGES APRN Aug 14, 2016 13:51 DAMIAN FAUSTIN MD Aug 14, 2016 13:56
[2016-08-14 14:33] VITALS: BP 143/105
[2016-08-14] MEDS: ENOXAPARIN 40 MG/0.4 ML SYRINGE. SQ SCH (16:49)
[2016-08-14 19:00] VITALS: BP 150/89
[2016-08-14] MEDS: oxyCODONE/APAP 5/325 1 TAB TABLET PO PRN (20:29)
[2016-08-15] MEDS: PIPERACILLIN/TAZOBACTAM 4.5 GM in IV NORMAL SALINE 100ML 100 ML IV SCH ×2 (00:02→05:06)
[2016-08-15] MEDS: oxyCODONE/APAP 5/325 1 TAB TABLET PO PRN ×3 (00:02→12:39)
[2016-08-15 00:12] VITALS: BP 140/102
[2016-08-15 03:18] VITALS: BP 137/96
[2016-08-15 07:00] VITALS: BP 161/103
[2016-08-15] MEDS: METOPROLOL TART IMMED RELEASE 50 MG TABLET. PO SCH (08:16)
[2016-08-15] MEDS: FAMOTIDINE 20 MG TABLET. PO SCH (08:16)
--- NOTE | 2016-08-15 10:28 | PDOC ---
Infectious Disease Note Subjective Subjective Tolerating diet No fever last 24 hours ROS ROS GEN: Denies fevers, chills, sweats HEENT: Denies blurred vision, sore throat CV: Denies chest pain RESP: Denies shortness of air, cough GI: Denies n/v/d NEURO: Denies confusion, dizziness MSK: Denies weakness, joint pain/swelling Vital Sign Vital Signs Vital Signs Date Time Temp Pulse Resp B/P (MAP) Pulse Ox O2 Delivery O2 Flow Rate FiO2 08/15/16 08:17 Room Air 08/15/16 08:16 81 161/103 08/15/16 07:00 98.5 20 95 98.5 08/15/16 01:02 2.0 Physical Exam PHYSICAL EXAM GENERAL: NAD, Alert HEENT: PERRL, OC/OP NECK: Supple, no JVD, no LN LUNGS: Clear HEART: S1S2, no gallop, no murmur ABD: Soft, NT, no organomegaly, no rebound EXT: No edema, no cyanosis VOIP NETWORK TECHNICIAN: Alert, oriented x 3, no focal neurologic deficit SKIN: No rash IV: ok Labs Lab Laboratory Tests Test 08/14/16 11:51 08/14/16 16:27 08/14/16 21:51 08/15/16 07:39 Glucose (Fingerstick) 107 mg/dL (70-99) 61 mg/dL (70-99) 106 mg/dL (70-99) 105 mg/dL (70-99) Objective Assessment Diverticulitis Leukocytosis HTN Plan Plan of Care Zosyn, change to po augmentin Supportive care DAMIAN Rizvi MD Aug 15, 2016 10:28
--- NOTE | 2016-08-15 10:52 | PDOC ---
G I PROGRESS NOTE Reason for Follow-up Diverticulitis Subjective Minimal pain. Tolerating diet. Physical Exam Lungs clear. RRR Abdomen soft. Very mild tenderness LLQ. Review of Relevant I have reviewed the following items quincy (where applicable) has been applied. Labs Laboratory Tests Test 08/13/16 11:35 08/13/16 16:32 08/13/16 20:58 08/14/16 04:32 Glucose (Fingerstick) 110 mg/dL (70-99) 92 mg/dL (70-99) 88 mg/dL (70-99) White Blood Count 8.4 x10^3/uL (4.0-11.0) Red Blood Count 4.30 x10^6/uL (4.30-5.70) Hemoglobin 12.4 g/dL (13.0-17.5) Hematocrit 36.8 % (39.0-53.0) Mean Corpuscular Volume 86 fL (79-100) Mean Corpuscular Hemoglobin 29 pg (25-35) Mean Corpuscular Hemoglobin Concent 34 g/dL (31-37) Red Cell Distribution Width 14.8 % (11.5-14.5) Platelet Count 230 x10^3/uL (140-400) Neutrophils (%) (Auto) 60 % (31-73) Lymphocytes (%) (Auto) 29 % (24-48) Monocytes (%) (Auto) 8 % (0-9) Eosinophils (%) (Auto) 3 % (0-3) Basophils (%) (Auto) 1 % (0-3) Neutrophils # (Auto) 5.0 x10^3uL (1.8-7.7) Lymphocytes # (Auto) 2.4 x10^3/uL (1.0-4.8) Monocytes # (Auto) 0.7 x10^3/uL (0.0-1.1) Eosinophils # (Auto) 0.3 x10^3/uL (0.0-0.7) Basophils # (Auto) 0.0 x10^3/uL (0.0-0.2) Sodium Level 139 mmol/L (136-145) Potassium Level 3.7 mmol/L (3.5-5.1) Chloride Level 103 mmol/L (98-107) Carbon Dioxide Level 25 mmol/L (21-32) Anion Gap 11 (6-14) Blood Urea Nitrogen 9 mg/dL (8-26) Creatinine 0.9 mg/dL (0.7-1.3) Estimated GFR (Cockcroft-Gault) 92.5 Glucose Level 119 mg/dL (70-99) Calcium Level 9.2 mg/dL (8.5-10.1) Test 08/14/16 07:26 08/14/16 11:51 08/14/16 16:27 08/14/16 21:51 Glucose (Fingerstick) 97 mg/dL (70-99) 107 mg/dL (70-99) 61 mg/dL (70-99) 106 mg/dL (70-99) Test 08/15/16 07:39 Glucose (Fingerstick) 105 mg/dL (70-99) Laboratory Tests Test 08/14/16 11:51 08/14/16 16:27 08/14/16 21:51 08/15/16 07:39 Glucose (Fingerstick) 107 mg/dL (70-99) 61 mg/dL (70-99) 106 mg/dL (70-99) 105 mg/dL (70-99) Microbiology 08/11/16 Blood Culture - Preliminary, Resulted NO GROWTH AFTER 4 DAYS Medications Current Medications Morphine Sulfate 4 mg PRN Q15MIN PRN IV/SQ PAIN GREATER THAN 3/10 Last administered on 08/10/16 11:57; Start 08/10/16 at 09:15; Stop 08/11/16 at 09:14 ; Status DC Sodium Chloride 1,000 ml @ 1,000 mls/hr Q1H IV Last administered on 08/10/16 09:13; Start 08/10/16 at 09:15; Stop 08/10/16 at 10:14; Status DC Ondansetron HCl (Zofran) 4 mg 1X ONCE IV Last administered on 08/10/16 09:14 ; Start 08/10/16 at 09:15; Stop 08/10/16 at 09:16; Status DC Iohexol (Omnipaque 300 Mg/ml) 75 ml 1X ONCE IV Last administered on 08/10/16 09:30; Start 08/10/16 at 09:30; Stop 08/10/16 at 09:31; Status DC Info (Do NOT chart on this entry -- for MONITORING) 1 each PRN DAILY PRN MC SEE COMMENTS; Start 08/10/16 at 09:30; Stop 08/12/16 at 09:29; Status DC Ciprofloxacin Lactate 200 ml @ 200 mls/hr Q12HR IV Last administered on 09:01; Start 08/10/16 at 21:00; Stop 08/11/16 at 14:28; Status DC Metronidazole 100 ml @ 100 mls/hr Q8HRS IV Last administered on 08/11/16 14: 14; Start 08/10/16 at 22:00; Stop 08/11/16 at 14:28; Status DC Ciprofloxacin Lactate 200 ml @ 200 mls/hr 1X ONCE IV Last administered on 12:00; Start 08/10/16 at 12:00; Stop 08/10/16 at 12:59; Status DC Metronidazole 100 ml @ 100 mls/hr 1X ONCE IV ; Start 08/10/16 at 12:00; Stop 08/10/16 at 12:59; Status DC Ondansetron HCl (Zofran) 4 mg PRN Q8HRS PRN IV NAUSEA/VOMITING; Start 08/10/16 at 11:45; Stop 08/11/16 at 11:44; Status DC Morphine Sulfate 4 mg PRN Q2HR PRN IV PAIN Last administered on 08/11/16 22:22 ; Start 08/10/16 at 11:45; Stop 08/12/16 at 06:02; Status DC Dextrose/Sodium Chloride 1,000 ml @ 125 mls/hr 1X ONCE IV ; Start 08/10/16 at 11:45; Stop 08/10/16 at 19:44; Status DC Sodium Chloride 1,000 ml @ 1,000 mls/hr 1X ONCE IV ; Start 08/10/16 at 11:45; Stop 08/10/16 at 12:44; Status DC Potassium Chloride/Dextrose/ Sod Cl 1,000 ml @ 125 mls/hr Q8H IV Last administered on 08/12/16 23:35; Start 08/10/16 at 12:45; Stop 08/13/16 at 17:51 ; Status DC Insulin Aspart (NovoLOG) 0-7 UNITS TIDWMEALS SQ ; Start 08/10/16 at 17:00; Stop 08/11/16 at 10:41; Status DC Dextrose (Dextrose 50%-Water Syringe) 12.5 gm PRN Q15MIN PRN IV SEE COMMENTS; Start 08/10/16 at 12:45; Stop 08/11/16 at 10:41; Status DC Sodium Chloride 1,000 ml @ 1,000 mls/hr 1X ONCE IV Last administered on 13:57; Start 08/10/16 at 12:45; Stop 08/10/16 at 13:44; Status DC Nicotine Polacrilex (Nicorette Gum) 1 each PRN Q1HR PRN BC SMOKING CESSATION; Start 08/10/16 at 13:00 Nicotine (Nicoderm Cq 14mg) 1 patch PRN DAILY PRN TD SMOKING CESSATION; Start 08/10/16 at 13:00 Morphine Sulfate (Morphine Ir) 15 mg Q4HRS PRN PO PAIN Last administered on 08/13 23:15; Start 08/10/16 at 13:00; Stop 08/14/16 at 16:54; Status DC Fentanyl Citrate (Fentanyl 2ml Vial) 75 mcg 1X ONCE IV Last administered on 13:56; Start 08/10/16 at 13:15; Stop 08/10/16 at 13:16; Status DC Ketorolac Tromethamine (Toradol) 15 mg 1X ONCE IV Last administered on 14:22; Start 08/10/16 at 13:30; Stop 08/10/16 at 13:31; Status DC Acetaminophen (Tylenol) 1,000 mg 1X ONCE PO Last administered on 08/10/16 14: 22; Start 08/10/16 at 13:30; Stop 08/10/16 at 13:31; Status DC Acetaminophen (Tylenol) 650 mg PRN Q6HRS PRN PO FEVER Last administered on 09:49; Start 08/11/16 at 00:00 Labetalol HCl (Normodyne) 20 mg 1X ONCE IVP Last administered on 08/11/16 00: 32; Start 08/11/16 at 00:00; Stop 08/11/16 at 00:01; Status DC Magnesium Sulfate/ Dextrose 50 ml @ 25 mls/hr 1X ONCE IV Last administered on 08/11/16 11:04; Start 08/11/16 at 11:00; Stop 08/11/16 at 12:59; Status DC Sodium Chloride 1,000 ml @ 1,000 mls/hr 1X ONCE IV Last administered on 11:03; Start 08/11/16 at 11:00; Stop 08/11/16 at 11:59; Status DC Throat Lozenges (Cepacol Sore Throat Lozenge) 1 oliva PRN Q2HRS PRN PO SORE THROAT Last administered on 08/11/16 11:07; Start 08/11/16 at 11:00 Saliva Substitute (Biotene Moisturizing Mouth) 2 spray PRN Q15MIN PRN PO DRY MOUTH Last administered on 08/11/16 15:49; Start 08/11/16 at 11:00 Piperacillin Sod/ Tazobactam Sod 4.5 gm/Sodium Chloride 100 ml @ 200 mls/hr Q6HRS IV Last administered on 08/15/16 05:06; Start 08/11/16 at 18:00; Stop 08/15/16 at 10:29; Status DC Labetalol HCl (Normodyne) 20 mg PRN Q4HRS PRN IVP HYPERTENSION, SEE COMMENTS Last administered on 08/11/16 20:28; Start 08/11/16 at 15:45 Morphine Sulfate 4 mg PRN Q2HR PRN IV PAIN; Start 08/12/16 at 06:15; Stop at 16:54; Status DC Metoprolol Tartrate (Lopressor) 50 mg BID PO Last administered on 08/15/16 08: 16; Start 08/13/16 at 15:00 Enoxaparin Sodium (Lovenox 40mg Syringe) 40 mg DAILY16 SQ Last administered on 08/14/16 16:49; Start 08/13/16 at 16:00 Famotidine (Pepcid) 20 mg BID PO Last administered on 08/15/16 08:16; Start 08/13/16 at 15:00 Potassium Chloride/Sodium Chloride 1,000 ml @ 75 mls/hr [id number] IV Last administered on 08/14/16 10:25; Start 08/13/16 at 18:00 Oxycodone/ Acetaminophen (Percocet 5/325) 1 tab PRN Q4HRS PRN PO PAIN Last administered on 08/15/16t 08:17; Start 08/14/16 at 17:00 Amoxicillin/ Clavulanate Potassium (Augmentin 875/ 125mg) 1 tab BID PO ; Start 08/15/16 at 11:30 Active Scripts Active Reported Metoprolol Tartrate 50 Mg Tablet 1 Tab PO BID Vitals/I & O Vital Sign - Last 24 Hours 08/14/16 08/14/16 08/14/16 08/14/16 10:50 14:33 19:00 20:00 Temp 97.7 97.5 98.4 97.7 97.5 98.4 Pulse 79 74 85 Resp 16 16 18 B/P (MAP) 150/100 (117) 143/105 (118) 150/89 (109) Pulse Ox 96 97 95 O2 Delivery Room Air Room Air Room Air Room Air 08/14/16 08/14/16 08/14/16 08/15/16 20:22 20:29 23:00 00:02 Pulse 85 Resp 20 20 20 B/P (MAP) 150/89 Pulse Ox 95 95 O2 Delivery Room Air Nasal Cannula O2 Flow Rate 3.0 08/15/16 08/15/16 08/15/16 08/15/16 00:12 01:02 03:18 07:00 Temp 98.6 98.4 98.5 98.6 98.4 98.5 Pulse 84 82 81 Resp 18 20 18 20 B/P (MAP) 140/102 (115) 137/96 (110) 161/103 (122) Pulse Ox 99 99 97 95 O2 Delivery Nasal Cannula Nasal Cannula Room Air Room Air O2 Flow Rate 2.0 2.0 08/15/16 08/15/16 08/15/16 07:45 08:16 08:17 Pulse 81 B/P (MAP) 161/103 O2 Delivery Room Air Room Air Intake and Output 08/14/16 08/14/16 08/15/16 15:00 23:00 07:00 Intake Total 650 ml 500 ml Balance 650 ml 500 ml Problem List Problems Medical Problems: (1) Diverticulitis Status: Acute Assessment Responding to treatment. Plan of Care: Continue current Tx, Mgmt Plan of Care Note Consider po antibiotics and home to complete course. Should have colonoscopy; wait at least 4-6 weeks after diverticulitis resolved. KATHY BRIONES MD Aug 15, 2016 10:51
[2016-08-15 11:00] VITALS: BP 154/112
[2016-08-15] MEDS ORDERED: AMOX1TAB61 PO (11:05)
[2016-08-15] MEDS: POTASSIUM CL 20MEQ-0.45% NACL 1,000 ML IV SCH (11:07)
[2016-08-15] MEDS ORDERED: AMOXICILLIN/K CLAV 875/125MG TABLET. PO SCH (11:30)
--- NOTE | 2016-08-15 12:25 | PDOC3 ---
Discharge Summary Visit Information Date of Admission: Aug 10, 2016 Date of Discharge: Aug 15, 2016 Admitting Diagnosis Comment: Diverticulitis Final Diagnosis Problems Medical Problems: (1) Diverticulitis Status: Acute Brief Hospital Course Allergies Allergies Coded Allergies Type Severity Reaction Last Updated Verified bee venom protein (honey bee) Allergy Severe Anaphylaxis 08/10/16 Yes Vital Signs Vital Signs Date Time Temp Pulse Resp B/P (MAP) Pulse Ox O2 Delivery O2 Flow Rate FiO2 08/15/16 11:06 Room Air 08/15/16 11:00 97.4 78 20 154/112 (126) 91 97.4 08/15/16 01:02 2.0 Lab Results Laboratory Tests Test 08/13/16 16:32 08/13/16 20:58 08/14/16 04:32 08/14/16 07:26 Glucose (Fingerstick) 92 mg/dL (70-99) 88 mg/dL (70-99) 97 mg/dL (70-99) White Blood Count 8.4 x10^3/uL (4.0-11.0) Red Blood Count 4.30 x10^6/uL (4.30-5.70) Hemoglobin 12.4 g/dL (13.0-17.5) Hematocrit 36.8 % (39.0-53.0) Mean Corpuscular Volume 86 fL (79-100) Mean Corpuscular Hemoglobin 29 pg (25-35) Mean Corpuscular Hemoglobin Concent 34 g/dL (31-37) Red Cell Distribution Width 14.8 % (11.5-14.5) Platelet Count 230 x10^3/uL (140-400) Neutrophils (%) (Auto) 60 % (31-73) Lymphocytes (%) (Auto) 29 % (24-48) Monocytes (%) (Auto) 8 % (0-9) Eosinophils (%) (Auto) 3 % (0-3) Basophils (%) (Auto) 1 % (0-3) Neutrophils # (Auto) 5.0 x10^3uL (1.8-7.7) Lymphocytes # (Auto) 2.4 x10^3/uL (1.0-4.8) Monocytes # (Auto) 0.7 x10^3/uL (0.0-1.1) Eosinophils # (Auto) 0.3 x10^3/uL (0.0-0.7) Basophils # (Auto) 0.0 x10^3/uL (0.0-0.2) Sodium Level 139 mmol/L (136-145) Potassium Level 3.7 mmol/L (3.5-5.1) Chloride Level 103 mmol/L (98-107) Carbon Dioxide Level 25 mmol/L (21-32) Anion Gap 11 (6-14) Blood Urea Nitrogen 9 mg/dL (8-26) Creatinine 0.9 mg/dL (0.7-1.3) Estimated GFR (Cockcroft-Gault) 92.5 Glucose Level 119 mg/dL (70-99) Calcium Level 9.2 mg/dL (8.5-10.1) Test 08/14/16 11:51 08/14/16 16:27 08/14/16 21:51 08/15/16 07:39 Glucose (Fingerstick) 107 mg/dL (70-99) 61 mg/dL (70-99) 106 mg/dL (70-99) 105 mg/dL (70-99) Laboratory Tests Test 08/14/16 16:27 08/14/16 21:51 08/15/16 07:39 Glucose (Fingerstick) 61 mg/dL (70-99) 106 mg/dL (70-99) 105 mg/dL (70-99) Brief Hospital Course Mr. Reyes is a 40 old AA male who was admitted and treated for diverticultis , CO managed with ID and gI. Had some BS issues in his course, NEeds OP GI Scope in 4-6 weeks, Rx for augmentin written, REquests pain meds script, helps him sleep. Pt seen and examined Dw patient and RN Time 31 mins > 50%counselling Work excuse also written Discharge Information Condition at Discharge: Improved, Stable Follow Up: Weeks (GI OP C scope in 4-6 weeks) Disposition/Orders: D/C to Home Scheduled Metoprolol Tartrate (Metoprolol Tartrate), 1 TAB PO BID, (Reported) RICHARD JUÁREZ MD Aug 15, 2016 12:25
[2016-08-15] MEDS ORDERED: OXYC-323 PO (12:30)
== END 2016-08-15 12:50 | disposition home or self-care (01) | DRG 872 ==
LOC: ER 08:28 → 4 NORTH 11:15
PROVIDERS: ADMIT Internal Medicine; ATTEND Internal Medicine
DX: A41.9 Sepsis, unspecified organism (principal); K57.32 Diverticulitis of large intestine without perforation or abscess without bleeding; E66.9 Obesity, unspecified; Z68.34 Body mass index [BMI] 34.0-34.9, adult; F10.21 Alcohol dependence, in remission; F17.210 Nicotine dependence, cigarettes, uncomplicated; I10 Essential (primary) hypertension; Z82.49 Family history of ischemic heart disease and other diseases of the circulatory system; F12.90 Cannabis use, unspecified, uncomplicated; Z88.8 Allergy status to other drugs, medicaments and biological substances
CPT/HCPCS: 36415; 74177; 80048; 80053; 80076; 81001; 82553; 82962; 83036; 83690; 83735; 84484; 85007; 85027; 85610; 85730; 87040; 93005; 96361; 96374; 96375; 96376; G0378; G0481; J0744; J1650; J1815; J1885; J2270; J2405; J2543; J3010; J3490; J7030; J7060; Q9967; 99285-25